=== PATIENT | female | born 1990 | race African-American/Black ===

== ENCOUNTER 2018-09-10 00:24 | Observation (INO) ==
[2018-09-10 02:14] LABS: Baso % (Auto) 0.2 % (0.0-2.0); Eos % (Auto) 0.1 % (0.0-4.0); Hematocrit 25.3 % (35.0-46.0); Hemoglobin 8.5 gm/dL (11.6-15.3); Lymph # (Auto) 1.6 th/mm3 (1.0-4.8); Lymph % (Auto) 9.3 % (9.0-44.0); Mean Corpuscular HGB Conc 33.7 % (32.0-36.0); Mean Corpuscular Hemoglobin 30.5 pg (27.0-34.0); Mean Corpuscular Volume 90.5 fL (80.0-100.0); Mean Platelet Volume 6.7 fL (7.0-11.0); Mono # (Auto) 1.8 th/mm3 (0.0-0.9); Mono % (Auto) 10.5 % (0.0-8.0); Neut # (Auto) 13.4 th/mm3 (1.8-7.7); Neut % (Auto) 79.9 % (16.0-70.0); Platelet Count 509 th/mm3 (150-450); Red Blood Count 2.79 mil/mm3 (4.00-5.30); Red Cell Distribution Width 12.8 % (11.6-17.2); White Blood Count 16.8 th/mm3 (4.0-11.0)
--- NOTE | 2018-09-10 02:20 | ED ---
History of Present Illness Primary Care Physician: No Primary Care Physician History of Present Illness: 28-year-old 5 para 2 TAB 1, SAB 1 at 26+ weeks gestation who presents for evaluation of abdominal pain. Patient states that the pain is in the right upper quadrant and is fairly constant. She describes it as crampy and 10 out of 10 intensity. She has had the pain for the last 2 months and has previously rated it 10/10 as far back as Jul 12. She denies obvious association with eating. She denies fever or chills. No anorexia, diarrhea or constipation. She denies any acholic stools or blood in her stool. No dysuria hematuria or frequency. Obstetrical history: 2 prior C-sections, elective , spontaneous . Her current is under the care of Dr. Copeland. It has been complicated by this pain now since June. She had a negative right upper quadrant ultrasound July 12 for similar pain. Review of Systems All other systems reviewed negative except as stated [facility] - Medical History Medical History: Medical History (Last Updated 09/10/18 @ 02:15 by Avery Main MD) History of Helicobacter pylori infection - Surgical History Surgical History: Surgical History (Last Updated 09/10/18 @ 02:15 by Avery Main MD) History of History of dilation and curettage - Travel History Recent Travel in the [place] Within the Last 8 Weeks: No Recent Travel Out of the Country Within the Last 8 Weeks: No Medications and Allergies Allergies Allergy/AdvReac Type Severity Reaction Status Date / Time No Known Allergies Allergy none Uncoded 09/10/18 00:53 Home Medications Medication Instructions Recorded Confirmed Type PNV cmb#95-ferrous fumarate-FA 1 tab PO DAILY 07/12/18 09/10/18 History [] acetaminophen [Tylenol Extra 1,000 mg PO Q6H PRN 09/10/18 09/10/18 History Strength] ferrous sulfate 1 tab PO DAILY 09/10/18 09/10/18 History Exam Vital signs: Vital Signs 09/10/18 00:41 09/10/18 00:49 Temperature 98.3 F Pulse Rate 123 H Respiratory Rate 18 Blood Pressure 97/62 L Intake & Output 09/09/18 09/09/18 09/10/18 06:59 18:59 06:59 Weight 59.874 kg Narrative: GENERAL: Well-nourished, well-developed patient. SKIN: Warm and dry. HEAD: Normocephalic and atraumatic. EYES: No scleral icterus. No injection or drainage. ENT: No nasal drainage noted. Mucous membranes pink. Airway patent. NECK: Supple, trachea midline. No JVD. CARDIOVASCULAR: Regular rate and rhythm without murmurs, gallops, or rubs. RESPIRATORY: Breath sounds equal bilaterally. No accessory muscle use. ABDOMEN/GI: Abdomen soft, localized tenderness in the right midclavicular line above the umbilicus, bowel sounds present, no rebound, no guarding , no CVA tenderness Gravid to [-] weeks size Fundal Height: [-] GENITOURINARY: External Genitalia: intact and normal in appearance BUS glands: [-] Cervix: [-] Dilatation: [-] Effacement: [-] Station: [-] Presentation: [-] Membranes: [intact or ruptured] Uterine Contractions: [no-] FHT's: Category: [1-] Baseline: [-] Reactive: [-y] Variability: [-] Decels: [-] EXTREMITIES: No cyanosis or edema. BACK: Nontender without obvious deformity. No CVA tenderness. NEUROLOGICAL: Awake and alert. Motor and sensory grossly within normal limits. Five out of 5 muscle strength in all muscle groups. Normal speech. Results - Labs CBC & Chem 7: 09/10/18 01:52 09/10/18 01:52 Assessment and Plan - Plan Assessment: 26-week intrauterine with right upper quadrant abdominal pain of uncertain origin which has been present over the last 2 months with an increase tonight with elevated white blood cell count. I am concerned of the possibility of an evolving acute abdominal process. Plan: Admit for observation and serial examination. Repeat ultrasound, consider possibly MRI. General surgical consult. Repeat CBC at [address] Bryan notified. Discharge Plan - Discharge Disposition Patient Disposition: 30 Still Patient - Discharge Condition Condition: Stable - Physicians Team ED Provider: Avery Main Primary Care Provider: Primary Care StaniMagda - Rxs /Orders / Referrals /Forms Prescriptions: No Action acetaminophen [Tylenol Extra Strength] 500 mg Tablet 1,000 mg PO Q6H PRN (Reason: Pain) ferrous sulfate 325 mg (65 mg iron) Tablet 1 tab PO DAILY PNV cmb#95-ferrous fumarate-FA [] 28 mg iron- 800 mcg Tablet 1 tab PO DAILY - Discharge Instructions Print Language: Faroese
[2018-09-10 02:21] LABS: Bacteria,Urine Occasional /hpf; Bilirubin,Urine Negative (Negative); Clarity,Urine Clear (Clear); Color,Urine Straw (Yellw/Straw); Glucose,Urine (UA) Negative (Negative); Leukocyte Esterase,Urine Negative (Negative); Mucus,Urine Few /lpf (Occasional); Nitrite,Urine Negative (Negative); Specific Gravity,Urine 1.006 (1.002-1.035); Squamous Epithelial Cell,Urine 1 /hpf (0-5)
[2018-09-10 02:33] LABS: Alanine Aminotransferase 10 U/L (10-53); Albumin 2.2 g/dL (3.4-5.0); Amylase 34 U/L (25-115); Anion Gap 12 meq/L (5-15); Aspartate Aminotransferase 7 U/L (15-37); Blood Urea Nitrogen 4 mg/dL (7-18); Calcium 8.5 mg/dL (8.5-10.1); Carbon Dioxide 22.7 meq/L (21.0-32.0); Chloride 104 meq/L (98-107); Glomerular Filtration Rate Greater Than 89 mL/min (>89); Glucose,Random 72 mg/dL (74-106); Lipase 27 U/L (73-393); Potassium 3.4 meq/L (3.5-5.1); Sodium 139 meq/L (136-145)
[2018-09-10 02:35] LABS: Alkaline Phosphatase 120 U/L (45-117); Total Protein 6.7 g/dL (6.4-8.2)
[2018-09-10] MEDS ORDERED: Sod Chloride 0.9% Inj 1,000 ML IV.CONT SCH ×2 (03:00→19:00)
--- NOTE | 2018-09-10 03:42 | P.HPOB ---
*LIVE* [facility] OB - ED Note Patient Name: Bebe Bruno Date of : 86 Patient Status: Observation Attending Provider: Estuardo Bryan Date: 09/10/18 02:09 Initialization Date: 09/10/18 02:09 History of Present Illness Primary Care Physician: No Primary Care Physician History of Present Illness: 28-year-old 5 para 2 TAB 1, SAB 1 at 26+ weeks gestation who presents for evaluation of abdominal pain. Patient states that the pain is in the right upper quadrant and is fairly constant. She describes it as crampy and 10 out of 10 intensity. She has had the pain for the last 2 months and has previously rated it 10/10 as far back as Jul 12. She denies obvious association with eating. She denies fever or chills. No anorexia, diarrhea or constipation. She denies any acholic stools or blood in her stool. No dysuria hematuria or frequency. Obstetrical history: 2 prior C-sections, elective , spontaneous . Her current is under the care of Dr. Copeland. It has been complicated by this pain now since June. She had a negative right upper quadrant ultrasound July 12 for similar pain. Review of Systems All other systems reviewed negative except as stated in HPI [facility] - Medical History Medical History: Medical History (Last Updated 09/10/18 @ 02:15 by Avery Main MD) History of Helicobacter pylori infection - Surgical History Surgical History: Surgical History (Last Updated 09/10/18 @ 02:15 by Avery Main MD) History of History of dilation and curettage - Travel History Recent Travel in the [facility] Within the Last 8 Weeks: No Recent Travel Out of the Country Within the Last 8 Weeks: No Medications and Allergies Allergies Allergy/AdvReac Type Severity Reaction Status Date / Time No Known Allergies Allergy none Uncoded 09/10/18 00:53 Home Medications Medication Instructions Recorded Confirmed Type PNV cmb#95-ferrous fumarate-FA 1 tab PO DAILY 07/12/18 09/10/18 History [] acetaminophen [Tylenol Extra 1,000 mg PO Q6H PRN 09/10/18 09/10/18 History Strength] ferrous sulfate 1 tab PO DAILY 09/10/18 09/10/18 History Exam Vital signs: Vital Signs 09/10/18 00:41 09/10/18 00:49 Temperature 98.3 F Pulse Rate 123 H Respiratory Rate 18 Blood Pressure 97/62 L Intake & Output 09/09/18 09/09/18 09/10/18 06:59 18:59 06:59 Weight 59.874 kg Narrative: GENERAL: Well-nourished, well-developed patient. SKIN: Warm and dry. HEAD: Normocephalic and atraumatic. EYES: No scleral icterus. No injection or drainage. ENT: No nasal drainage noted. Mucous membranes pink. Airway patent. NECK: Supple, trachea midline. No JVD. CARDIOVASCULAR: Regular rate and rhythm without murmurs, gallops, or rubs. RESPIRATORY: Breath sounds equal bilaterally. No accessory muscle use. ABDOMEN/GI: Abdomen soft, localized tenderness in the right midclavicular line above the umbilicus, bowel sounds present, no rebound, no guarding , no CVA tenderness Gravid to [-] weeks size Fundal Height: [-] GENITOURINARY: External Genitalia: intact and normal in appearance BUS glands: [-] Cervix: [-] Dilatation: [-] Effacement: [-] Station: [-] Presentation: [-] Membranes: [intact or ruptured] Uterine Contractions: [no-] FHT's: Category: [1-] Baseline: [-] Reactive: [-y] Variability: [-] Decels: [-] EXTREMITIES: No cyanosis or edema. BACK: Nontender without obvious deformity. No CVA tenderness. NEUROLOGICAL: Awake and alert. Motor and sensory grossly within normal limits. Five out of 5 muscle strength in all muscle groups. Normal speech. Results - Labs CBC & Chem 7: 09/10/18 01:52 09/10/18 01:52 Assessment and Plan - Plan Assessment: 26-week intrauterine with right upper quadrant abdominal pain of uncertain origin which has been present over the last 2 months with an increase tonight with elevated white blood cell count. I am concerned of the possibility of an evolving acute abdominal process. Plan: Admit for observation and serial examination. Repeat ultrasound, consider possibly MRI. General surgical consult. Repeat CBC at [address] Tyser notified. Discharge Plan - Discharge Disposition Patient Disposition: 30 Still Patient - Discharge Condition Condition: Stable - Physicians Team ED Provider: Avery Main Primary Care Provider: Primary Care Magda Nazario - Rxs /Orders / Referrals /Forms Prescriptions: No Action acetaminophen [Tylenol Extra Strength] 500 mg Tablet 1,000 mg PO Q6H PRN (Reason: Pain) ferrous sulfate 325 mg (65 mg iron) Tablet 1 tab PO DAILY PNV cmb#95-ferrous fumarate-FA [] 28 mg iron- 800 mcg Tablet 1 tab PO DAILY - Discharge Instructions Print Language: Iraqi
[2018-09-10 04:05] LABS: Amphetamine Screen,Urine Neg (Neg); Barbiturate Screen,Urine Neg (Neg); Cannabinoid Screen,Urine Neg (Neg); Cocaine Screen,Urine Neg (Neg)
[2018-09-10 04:06] LABS: Opiate Screen,Urine Neg (Neg)
--- NOTE | 2018-09-10 05:05 | US ---
EXAM DATE: 09/10/2018 5:01 AM EST AGE/SEX: 28 years / Female INDICATIONS: RUQ pain. CLINICAL DATA: This is the patient's subsequent encounter. Patient reports that signs and symptoms h ave been present for 2 months and indicates a pain score of 10/10. MEDICAL/SURGICAL HISTORY: . . Helicobacter pylori infection. section. Dilat ion and curettage. COMPARISON: No prior exams available for comparison. MEASUREMENTS: Liver:__ 17.1 cm. Common Bile Duct:__ 4mm. FINDINGS: Liver: Increased echotexture without focal lesion or ductal dilation. Portal Vein: Hepatopedal flow seen in portal vein. Common Duct: No intraluminal mass or stone visualized. Gallbladder: Demonstrates no wall thickening or pericholecystic fluid. No stones visualized. Pancreas: Not well visualized. Right Kidney: Increased echotexture. No mass or hydronephrosis. CONCLUSION: Right upper quadrant abdominal ultrasound within normal limits. Electronically signed by: Mauricio Trammell MD 09/10/2018 5:04 AM EST
[2018-09-10 08:13] LABS: Baso % (Auto) 0.1 % (0.0-2.0); Eos % (Auto) 0.1 % (0.0-4.0); Hematocrit 24.1 % (35.0-46.0); Hemoglobin 8.2 gm/dL (11.6-15.3); Lymph # (Auto) 1.1 th/mm3 (1.0-4.8); Lymph % (Auto) 7.3 % (9.0-44.0); Mean Corpuscular HGB Conc 34.1 % (32.0-36.0); Mean Corpuscular Hemoglobin 30.7 pg (27.0-34.0); Mean Corpuscular Volume 89.9 fL (80.0-100.0); Mean Platelet Volume 6.5 fL (7.0-11.0); Mono # (Auto) 1.6 th/mm3 (0.0-0.9); Mono % (Auto) 10.7 % (0.0-8.0); Neut # (Auto) 12.4 th/mm3 (1.8-7.7); Neut % (Auto) 81.8 % (16.0-70.0); Platelet Count 457 th/mm3 (150-450); Red Blood Count 2.68 mil/mm3 (4.00-5.30); Red Cell Distribution Width 12.7 % (11.6-17.2); White Blood Count 15.2 th/mm3 (4.0-11.0)
--- NOTE | 2018-09-10 08:49 | P.OBGPN ---
OB progress note The patient reports no change in her pain since admission. She denies new symptoms. HR 120's, T 98.6, BP 97/59 Abdomen: She continues to have focal tenderness and guarding on the right upper quadrant. There is no tenderness in other abdominal locations. Bowel sounds are present. Right upper quadrant ultrasound was within normal limits WBC 16.8 to 15.2 now, HGB 8.5 to 8.2 now Assessment: Right upper quadrant pain of uncertain origin in female with a 26- week intrauterine Plan: I discussed this patient with Dr. Mason from surgery who will be performing her consultation who agreed with the plan to proceed with MRI. I discussed this patient with Dr. Hicks who is her attending physician.
[2018-09-10] MEDS ORDERED: HYDROmorphone PF Inj 1 MG/ML Ampul IV.PUSH ONE (09:00)
--- NOTE | 2018-09-10 09:52 | P.OBANTE ---
Subjective Objective Vital Signs and I&O: Vital Signs 09/10/18 00:41 09/10/18 00:49 09/10/18 03:26 Temperature 98.3 F 98.0 F Pulse Rate 123 H 113 H Respiratory Rate 18 18 Blood Pressure 97/62 L 93/59 L 09/10/18 07:53 Temperature 97.9 F Pulse Rate 121 H Respiratory Rate 20 Blood Pressure 97/59 L Intake & Output 09/09/18 09/10/18 09/10/18 18:59 06:59 18:59 Weight 60 kg Other: Weight On Admission 60 kg Lab and Micro Results: Laboratory Results - last 24 hr 09/10/18 09/10/18 09/10/18 00:50 00:50 01:52 WBC 16.8 H RBC 2.79 L Hgb 8.5 L Hct 25.3 L MCV 90.5 MCH 30.5 MCHC 33.7 RDW 12.8 Plt Count 509 H MPV 6.7 L Neut % (Auto) 79.9 H Lymph % (Auto) 9.3 Glades % (Auto) 10.5 H Eos % (Auto) 0.1 Baso % (Auto) 0.2 Neut # (Auto) 13.4 H Lymph # (Auto) 1.6 Glades # (Auto) 1.8 H Eos # (Auto) 0.0 Baso # (Auto) 0.0 WBC Differential . Differential Comment Auto diff final Sodium Potassium Chloride Carbon Dioxide Anion Gap BUN Creatinine Estimated GFR Random Glucose Calcium Total Bilirubin AST ALT Alkaline Phosphatase Total Protein Albumin Amylase Lipase Urine Color Straw Urine Clarity Clear Urine pH 5.0 Ur Specific Baxley 1.006 Urine Protein Negative Urine Glucose (UA) Negative Urine Ketones 80 or greater H Urine Occult Blood Negative Urine Nitrate Negative Urine Bilirubin Negative Urine Urobilinogen Less than 2 Ur Leukocyte Esterase Negative Urine RBC Less than 1 Urine WBC 4 Ur Squamous Epith Cells 1 Urine Bacteria Occasional H Urine Mucus Few H Micro UA Comment Culture not ind Ur Microscopic Review Not Reportable Urine Culture Comments Culture not ind Urine Opiates Screen Neg Ur Barbiturates Screen Neg Ur Amphetamines Screen Neg U Benzodiazepines Scrn Neg Urine Cocaine Screen Neg U Cannabinoids Screen Neg 09/10/18 09/10/18 01:52 07:50 WBC 15.2 H RBC 2.68 L Hgb 8.2 L Hct 24.1 L MCV 89.9 MCH 30.7 MCHC 34.1 RDW 12.7 Plt Count 457 H MPV 6.5 L Neut % (Auto) 81.8 H Lymph % (Auto) 7.3 L Glades % (Auto) 10.7 H Eos % (Auto) 0.1 Baso % (Auto) 0.1 Neut # (Auto) 12.4 H Lymph # (Auto) 1.1 Glades # (Auto) 1.6 H Eos # (Auto) 0.0 Baso # (Auto) 0.0 WBC Differential . Differential Comment Auto diff final Sodium 139 Potassium 3.4 L Chloride 104 Carbon Dioxide 22.7 Anion Gap 12 BUN 4 L Creatinine 0.42 L Estimated GFR Greater than 89 Random Glucose 72 L Calcium 8.5 Total Bilirubin 0.3 AST 7 L ALT 10 Alkaline Phosphatase 120 H Total Protein 6.7 Albumin 2.2 L Amylase 34 Lipase 27 L Urine Color Urine Clarity Urine pH Ur Specific Baxley Urine Protein Urine Glucose (UA) Urine Ketones Urine Occult Blood Urine Nitrate Urine Bilirubin Urine Urobilinogen Ur Leukocyte Esterase Urine RBC Urine WBC Ur Squamous Epith Cells Urine Bacteria Urine Mucus Micro UA Comment Ur Microscopic Review Urine Culture Comments Urine Opiates Screen Ur Barbiturates Screen Ur Amphetamines Screen U Benzodiazepines Scrn Urine Cocaine Screen U Cannabinoids Screen Physical Exam: GENERAL: Well-nourished, well-developed patient. CARDIOVASCULAR: Regular rate and rhythm without murmurs, gallops, or rubs. RESPIRATORY: Breath sounds equal bilaterally. No accessory muscle use. ABDOMEN/GI: Abdomen soft, non-tender. Fundus: [-] GENITOURINARY: External Genitalia: intact and normal in appearance Cervix: [-] Dilatation: [-] Effacement: [-] Station: [-] Presentation: [-] Membranes: [-] Uterine Contractions: [-] FHT's: Category: [-] Baseline: [-] Reactive: [-] Variability: [-] Decels: [-] EXTREMITIES: No cyanosis or edema, non-tender, without signs of DVT. Assessment and Plan - Diagnosis (1) Abdominal pain Code(s): R10.9 - Unspecified abdominal pain Status: Acute Plan: surgical consult/ MRI ordered pain medication ordered (2) 26 weeks gestation of Code(s): Z3A.26 - 26 weeks gestation of Status: Acute Plan: tracing reassuring, - Plan RUQ pain constant, pain medication ordered, other quadrants of abd soft and nontender MRI ordered to assist with etiology surgical consult to be done white count 15.2, hgb 8.2 (1) Abdominal pain Qualifiers: Abdominal location: right upper quadrant Qualified Code(s): R10.11 - Right upper quadrant pain
--- NOTE | 2018-09-10 10:51 | MR ---
EXAM DATE: 09/10/2018 10:26 AM EST AGE/SEX: 28 years / Female INDICATIONS: . RUQ pain. Patient 26 weeks . CLINICAL DATA: This is the patient's initial encounter. Patient reports that signs and symptoms have been present for 2 weeks and indicates a pain score of 8/10. MEDICAL/SURGICAL HISTORY: . section. COMPARISON: [facility], CT ABDOMEN AND PELVIS W AND W/O CONTRAST, 08/16/2017. . TECHNIQUE: Multiplanar, multisequence images of the abdomen was performed without contrast. FINDINGS: The patient is known to be 26 weeks . The was not assessed by the MRI. The examination demonstrates an area of extensive, abnormal thickening and inflammation involving the terminal ileum up to the base of the cecum. Of concern, there is abnormal fluid and soft tissue exte nding laterally from the region of the base of the cecum into the subcutaneous tissues of the right f lank. This is concerning for abscess with potential fistula formation. I do not definitively identify the appendix this is likely secondary to the extensive inflammatory changes in this area. The overal l involvement of the distal ileum would suggest the most likely etiology of this is from the patient' s inflammatory bowel disease. There is stool diffusely throughout the colon suggesting possible constipation. The appearance of the liver, spleen, pancreas, adrenal glands and kidneys is within normal limits. Th ere is no retroperitoneal lymphadenopathy. No free intra-abdominal fluid is identified. CONCLUSION: 1. The examination demonstrates extensive inflammatory change and thickening involving the terminal ileum and base of the cecum with abnormal inflammatory changes and fluid extending out into the subcu taneous soft tissues of the right flank adjacent to this area. This is concerning for inflammatory larry wel disease with abscess and pending fistula formation. 2. The solid organs of the abdomen are intact. 3. The patient is known to be 26 weeks . The was not assessed in detail. Electronically signed by: Sonny Live MD 09/10/2018 10:50 AM EST
[2018-09-10] MEDS: HYDROmorphone PF Inj 1 MG/ML Ampul IV.PUSH PRN ×4 (11:20→20:20)
[2018-09-10] MEDS ORDERED: Acetaminophen 500 MG Tablet PO PRN (16:26)
[2018-09-10] MEDS ORDERED: Ampicillin/Sulbactam Inj 3 GM in Sodium Chloride 0.9% Inj 100 ML IV.SIG ONE (17:00)
--- NOTE | 2018-09-10 17:10 | P.PNADD ---
Addendum to Inpatient Note Reason for Addendum: Additional Documentation Additional information: ELLEN called at 5:00PM Resident team at bedside at 5:00PM S: 28-year-old female A1 at 26/4 weeks gestation who originally presented to the OB ED for abdominal pain. MRI from this morning showed "extensive inflammatory change and thickening involving the terminal ileum and base of the cecum with abnormal inflammatory changes and fluid extending out into the subcutaneous soft tissues of the right flank adjacent to this area, concerning for inflammatory bowel disease with abscess and pending fistula formation". Gallbladder US was negative. Patient had a fever of up to 101.1F, with tachycardia up to 138 bpm and blood pressure of 95/48. Patient pending possible transfer [facility] for further care. Patient states that her pain is well controlled at this point in time. Patient denies headache, chest pain, shortness of breath, leg pain or swelling. O: Vital signs: Tmax 101.1, BP 95/48, HR 133, RR 20 GENERAL: Well-developed, well-nourished, in no resp distress HEENT: NCAT, EOMI, no scleral icterus, no conjunctival injection. MMM. Airway patent. NECK: Supple, no meningeal signs. No JVD. CV: RRR, S1 S2. No murmurs. CHEST/PULM: CTAB, no crackles, no wheezes ABD/GI: +BS in all 4 quadrants. Tender to light and moderate palpation of right flank. No no rebound or guarding. Gravid to 26 weeks. : Indwelling lazcano in place EXT: 2+ DP pulses. No significant edema. NEURO: Awake, alert. Normal muscle tone. Grossly nonfocal. SKIN: No rashes, no jaundice. A/P: -CBC, CMP, lactic acid, blood cultures x2 ordered -1 L IV fluid bolus -Antibiotics: Unasyn and Flagyl ordered per OB provider -Continue Ofirmev IV -Continue Dilaudid 1 mg IV every 2 hours for pain -Continuous electronic monitoring ordered. -Stat consult to airline operations agent ordered. Spoke to airline operations agent, Dr. Cuevas, in preparation for transfer to ICU. sdw Dr. Gaona
[2018-09-10 17:40] LABS: Baso % (Auto) 0.2 % (0.0-2.0); Hematocrit 25.4 % (35.0-46.0); Hemoglobin 8.5 gm/dL (11.6-15.3); Lymph # (Auto) 1.5 th/mm3 (1.0-4.8); Lymph % (Auto) 9.4 % (9.0-44.0); Mean Corpuscular HGB Conc 33.5 % (32.0-36.0); Mean Corpuscular Hemoglobin 31.4 pg (27.0-34.0); Mean Corpuscular Volume 93.7 fL (80.0-100.0); Mean Platelet Volume 6.5 fL (7.0-11.0); Mono # (Auto) 1.8 th/mm3 (0.0-0.9); Mono % (Auto) 11.6 % (0.0-8.0); Neut # (Auto) 12.5 th/mm3 (1.8-7.7); Neut % (Auto) 78.8 % (16.0-70.0); Platelet Count 462 th/mm3 (150-450); Red Blood Count 2.71 mil/mm3 (4.00-5.30); Red Cell Distribution Width 13.4 % (11.6-17.2); White Blood Count 15.8 th/mm3 (4.0-11.0)
[2018-09-10 18:00] LABS: Alanine Aminotransferase 10 U/L (10-53); Albumin 2.1 g/dL (3.4-5.0); Anion Gap 13 meq/L (5-15); Aspartate Aminotransferase 9 U/L (15-37); Blood Urea Nitrogen 4 mg/dL (7-18); Calcium 8.2 mg/dL (8.5-10.1); Carbon Dioxide 17.6 meq/L (21.0-32.0); Chloride 108 meq/L (98-107); Glomerular Filtration Rate Greater Than 89 mL/min (>89); Glucose,Random 63 mg/dL (74-106); Potassium 3.4 meq/L (3.5-5.1); Sodium 139 meq/L (136-145)
[2018-09-10] MEDS ORDERED: Piperacil/Tazo 3.375 GM Premix 50 ML IV.SIG SCH (18:00)
[2018-09-10 18:02] LABS: Alkaline Phosphatase 110 U/L (45-117); Total Protein 6.7 g/dL (6.4-8.2)
[2018-09-10] MEDS: Sod Chloride 0.9% Inj 1,000 ML IV.SIG SCH ×2 (19:29→20:20)
--- NOTE | 2018-09-10 20:20 | P.CONCC ---
History of Present Illness Primary Care Provider: No Primary Care Physician History of Present Illness: 28-year-old 5 para 2 TAB 1, SAB 1 at 26+ weeks gestation has been admitted for an evaluation of abdominal pain. Patient states that the pain is in the right upper quadrant and is fairly constant. She describes it as crampy and 10 out of 10 intensity. She has had the pain for the last 2 months and has previously rated it 10/10 as far back as Jul 12. She denies obvious association with eating. She denies fever or chills. No anorexia, diarrhea or constipation. She denies any acholic stools or blood in her stool. No dysuria hematuria or frequency. The MRI of the abdomen obtained demonstrates extensive inflammatory change and thickening involving the terminal ileum and base of the cecum with abnormal inflammatory changes and fluid extending out into the subcutaneous soft tissues of the right flank adjacent to this area. This is concerning for inflammatory bowel disease with abscess and pending fistula formation. The patient was initially admitted to [facility] unit for an observation , however today early in the afternoon she became borderline hypotensive with tachycardia and fever 101.1 and the rapid response team was activated. The patient has been transferred to ICU for suspicious sepsis where she was properly volume resuscitated, started on IV antibiotics, and has been [facility] [place] for higher level of care. Review of Systems All other systems reviewed negative except as stated in HPI PMFSH - History History Provided By: Patient - Medical History Medical History: Medical History (Last Updated 09/10/18 @ 02:15 by Avery Main MD) History of Helicobacter pylori infection - Surgical History Surgical History: Surgical History (Last Updated 09/10/18 @ 02:15 by Avery Main MD) History of History of dilation and curettage - Tobacco History Second Hand Smoke Exposure: No Tobacco Use In Past 30 Days: No Smoking Status: Former smoker Tobacco Type: Cigarettes - Alcohol History How Often Do You Have a Drink Containing Alcohol: Never - Substance Use History Substance History: No History of Abuse - Travel History Recent Travel in the [place] Within the Last 8 Weeks: No Recent Travel Out of the Country Within the Last 8 Weeks: No - Immunization History Tetanus Immunization: Unsure Hx Influenza Vaccine This Season: Yes Medications and Allergies Active Medications: Active Medications Hydromorphone HCl (Dilaudid Pf Inj) 1 mg IV.PUSH Q2H PRN PRN Reason: PAIN SCALE 3-10 Last Admin: 09/10/18 16:33 Dose: 1 mg Metronidazole/Sodium Chloride (Flagyl 500 Mg Inj) 100 mls @ 100 mls/hr IV.SIG Q8H KARIS Piperacillin/Tazobactam/Dextrose (Zosyn 3.375 Gm Premix) 50 mls @ 100 mls/hr IV.SIG Q6H KARIS Last Admin: 09/10/18 19:33 Dose: 100 mls/hr Sodium Chloride (Ns Inj) 1,000 mls @ 150 mls/hr IV.CONT .Q6H40M KARIS Ondansetron HCl (Zofran Inj) 4 mg IV.PUSH Q4H PRN PRN Reason: NAUSEA Sodium Chloride (Ns Flush) 2 ml IV.FLUSH BID KARIS Last Admin: 09/10/18 10:50 Dose: Not Given Sodium Chloride (Ns Flush) 2 ml IV.FLUSH PRN PRN PRN Reason: FLUSH AFTER USING IV ACCESS Allergies Allergy/AdvReac Type Severity Reaction Status Date / Time No Known Allergies Allergy Verified 09/10/18 04:52 Home Medications Medication Instructions Recorded Confirmed Type PNV cmb#95-ferrous fumarate-FA 1 tab PO DAILY 07/12/18 09/10/18 History [] acetaminophen [Tylenol Extra 1,000 mg PO Q6H PRN 09/10/18 09/10/18 History Strength] ferrous sulfate 1 tab PO DAILY 09/10/18 09/10/18 History Physical Exam Vital signs: Vital Signs 09/10/18 00:41 09/10/18 00:49 09/10/18 03:26 Temperature 98.3 F 98.0 F Pulse Rate 123 H 113 H Respiratory Rate 18 18 Blood Pressure 97/62 L 93/59 L Pulse Oximetry 09/10/18 07:53 09/10/18 10:05 09/10/18 12:55 Temperature 97.9 F Pulse Rate 121 H 123 H Respiratory Rate 20 8 L 18 Blood Pressure 97/59 L 95/52 L Pulse Oximetry 09/10/18 12:56 09/10/18 16:20 09/10/18 16:22 Temperature 99.0 F 100.1 F H 101.1 F H Pulse Rate 133 H Respiratory Rate 20 Blood Pressure 95/48 L Pulse Oximetry 09/10/18 16:45 09/10/18 16:50 09/10/18 16:55 Temperature Pulse Rate 138 H 133 H 127 H Respiratory Rate Blood Pressure Pulse Oximetry 09/10/18 17:54 09/10/18 18:00 09/10/18 19:00 Temperature 98.9 F 98.2 F Pulse Rate 134 H 122 H Respiratory Rate 16 16 21 Blood Pressure 94/51 L Pulse Oximetry 98 09/10/18 20:00 Temperature Pulse Rate 119 H Respiratory Rate 26 H Blood Pressure 97/56 L Pulse Oximetry 99 Intake & Output 09/10/18 09/10/18 09/11/18 06:59 18:59 06:59 Intake Total 1300 / 1300 Output Total 225 / 225 Balance -225 / -225 1300 / 1300 Weight 60 kg 69.7 kg Intake: IV 1300 / 1300 NS Inj 1,000 ML @ 125 mls/hr IV 1000 / 1000 .CONT .Q8H KARIS Rx#:[id number] Ofirmev Inj 1,000 mg In 100 ml 100 / 100 @ 400 mls/hr IV.SIG ONCE ONE Rx #:[id number] Unasyn Inj 3 GM In NS Inj 100 100 / 100 ML @ 200 mls/hr IV.SIG ONCE ONE Rx#:[id number] Flagyl 500 MG Inj 100 ML @ 100 100 / 100 mls/hr IV.SIG ONCE ONE Rx#: [id number] Output: Urine Amount (Catheter) 225 / 225 Indwelling Urethral Catheter 225 / 225 Other: Weight On Admission 60 kg - Constitutional moderate distress - Routine HEENT Exam Head: Present: normocephalic, atraumatic Eye: Present: PERRL ENT: Present: mucous membranes moist - Routine Neck Exam Present: supple, full ROM. Absent: JVD, carotid bruit - Routine Respiratory Exam Absent: accessory muscle use, rhonchi, stridor, wheezes - Routine Cardiovascular Exam Present: RRR, S1, S2, tachycardia - Routine Abdominal Exam Present: soft, normoactive bowel sounds Comments: 26 weeks - Routine Extremities Exam Absent: cyanosis, clubbing, edema - Routine Skin Exam Present: intact. Absent: cyanosis, erythema - Routine Neurological Exam Present: alert, oriented X3, moving all extremities - Detailed Neurological Exam: Coma Scale Eye Opening: Spontaneous Verbal Response: Oriented Motor Response: Obey commands [place] Coma Scale Total: 15 - Urinary Catheter Management Indwelling Urethral Catheter Cath placed during this visit: no Septic Shock Reassessment Septic shock perfusion: reassessment completed Assessment and Plan - Assessment and Plan Plan: New onset of Crohn's disease with suspicious abscess formation and fistula -[facility] -Empiric broad-spectrum antibiotic -IV fluid SIRS/sepsis -Due to above -Empiric Flagyl and Zosyn -Aggressive IV fluid resuscitation -Per [facility] DVT GI prophylaxis -Teds SCDs -Pharmacological DVT prophylaxis per surgeon and [facility] -Pepcid 35 minutes of critical care
--- NOTE | 2018-09-11 18:37 | MB ---
cc: Jaya Goldstein MD DATE: 09/11/2018 HISTORY OF PRESENT ILLNESS: This is a 28-year-old female who is at 26 weeks' gestation, admitted with a complaint of abdominal pain. The patient has a history of Crohn disease. She has not had continuous treatment for this. She began experiencing abdominal pain approximately 2 months ago, persistence in her right side. As it was severe in nature, she presented to [place]. An ultrasound was performed of her upper abdomen, which was negative. The patient had an MRI of her abdomen which revealed thickening of the distal small bowel, as well as the cecum, concern for inflammatory bowel disease. The patient states that she was feeling well and as a result did not take her chronic medication for her Crohn's. PAST MEDICAL HISTORY: Significant for above, as well as treatment for H. pylori. PAST SURGICAL HISTORY: Significant for . MEDICATIONS: Can be obtained from the medical record. SOCIAL HISTORY: She does not smoke. FAMILY HISTORY: Noncontributory. PHYSICAL EXAMINATION: GENERAL: She is lying in bed, in distress secondary to pain. HEENT: Her pupils are equal and reactive. NECK: Her trachea is midline. RESPIRATIONS: Clear. CARDIOVASCULAR: Regular. GASTROINTESTINAL: Soft. Gravid uterus. Tenderness in the right upper and right lower quadrant. MUSCULOSKELETAL: No deformities. NEUROLOGIC: Nonfocal. LABORATORY DATA: The patient's white blood cell count was 15.6. MRI reviewed. ASSESSMENT AND PLAN: This is a patient who was at 26 weeks' gestation with a flare of Crohn disease. At present, recommended the patient have a GI evaluation for management of acute flare. Continue monitoring. Will start IV antibiotics. We will follow with you. Jaya Goldstein MD JLS/ll , 04:53 PM , 05:02 PM
== END 2018-09-10 20:45 | disposition short-term general hospital (02) ==
LOC: H2E 00:24 → HOBED 00:24 → H2E 03:15 → HIMC 17:30
PROVIDERS: ADMIT Obstetrics & Gynecology; ATTEND Obstetrics & Gynecology

== ENCOUNTER 2018-12-04 18:29 | Inpatient (IN) ==
[2018-12-04] MEDS ORDERED: ceFAZolin 2 GM Premix Inj 2 GM/50 ML PIGGYBACK IV.SIG PRN (19:06)
[2018-12-04] MEDS ORDERED: Citric Acid/Sodium Citrate Liq 30 ML UDC PO SCH (19:15)
--- NOTE | 2018-12-04 19:24 | P.HPOB ---
[id number] Date of : [birth year] Patient Status: Inpatient Attending Provider: Fawad Copeland Date: 12/04/18 19:14 Initialization Date: 12/04/18 19:14 History of Present Illness Primary Care Physician: No Primary Care Physician Chief Complaint: I broke my water History of Present Illness: 28-year-old at 38 weeks and 5 days presents complaining of spontaneous rupture of membranes clear fluid today. GBS status negative. care with Dr. Copeland. This was complicated by an admission to [place] secondary to an intestinal abscess managed with IV antibiotics in August 2018 required admission times 1 week. Patient reports good movement denies vaginal bleeding reports some cramps but no moy uterine contractions. Last full meal was 12 noon. She has had a couple of sips of water otherwise. Patient also desires permanent sterilization. Past OB history delivery x2 the first was for nonreassuring heart rate, the second was elective repeat Past [employer] HAND history denies STDs Past medical history Crohn's Past surgical history delivery x2, endoscopy and colonoscopy Allergies denies Weeks Gestation:: 38 Para: 2 : 5 - Inpatient Certification I certify that the inpatient services were ordered in accordance with Medicare regulations governing the order. This includes certification that hospital inpatient services are reasonable and necessary and in the case of services not specified as inpatient-only under 42 CFR 419.22(n), that they are appropriately provided as inpatient services in accordance to with the 2-midnight benchmark under 43 CFR 412.3(e) Estimated Total Length of Stay (Days): 4 Plans for Post Hospital Care: Home Review of Systems All other systems reviewed negative except as stated in HPI PMFSH - History History Provided By: Patient - Medical History Medical History: Medical History (Last Updated 09/10/18 @ 02:15 by Avery Main MD) History of Helicobacter pylori infection - Surgical History Surgical History: Surgical History (Last Updated 09/10/18 @ 02:15 by Avery Main MD) History of History of dilation and curettage - Tobacco History Second Hand Smoke Exposure: No Smoking Status: Former smoker Tobacco Type: Cigarettes - Alcohol History How Often Do You Have a Drink Containing Alcohol: Never - Substance Use History Substance History: No History of Abuse - Travel History Recent Travel in the [place] Within the Last 8 Weeks: No Recent Travel Out of the Country Within the Last 8 Weeks: No Medications and Allergies Active Medications: Active Medications Citric Acid/Sodium Citrate (Sodium Citrate/Citric Acid Liq) 30 ml PO [facility] K[facility] Stop: 12/08/18 19:14 Cefazolin Sodium/Dextrose (Ancef 2 Gm Premix Inj) 2 gm in 50 mls @ 100 mls/hr IV.SIG [facility] PRN PRN Reason: ON-CALL Stop: 12/08/18 19:05 Lactated Ringer's (Lr 1000 Ml Inj) 1,000 mls @ 2,000 mls/hr IV.SIG .Q30M ONE Stop: 12/04/18 19:35 Lactated Ringer's (Lr 1000 Ml Inj) 1,000 mls @ 150 mls/hr IV.CONT .Q6H40M KARIS Metronidazole/Sodium Chloride (Flagyl 500 Mg Inj) 100 mls @ 100 mls/hr IV.SIG [facility] PRN PRN Reason: ON-CALL Stop: 12/08/18 19:05 Allergies Allergy/AdvReac Type Severity Reaction Status Date / Time No Known Allergies Allergy Verified 11/29/18 16:43 Home Medications Medication Instructions Recorded Confirmed Type PNV cmb#95-ferrous fumarate-FA 1 tab PO DAILY 07/12/18 11/29/18 History [] RX: ferrous sulfate 1 tab PO DAILY 09/10/18 11/29/18 History acetaminophen [Tylenol Extra 1,000 mg PO Q6H PRN 09/10/18 11/29/18 History Strength] Exam Vital signs: Vital Signs 12/04/18 18:47 Temperature 98.7 F Pulse Rate 111 H Respiratory Rate 20 Blood Pressure 100/70 Intake & Output 12/04/18 12/04/18 12/05/18 06:59 18:59 06:59 Weight 62.596 kg - Constitutional no acute distress - Routine HEENT Exam Head: Present: normocephalic ENT: Present: mucous membranes moist - Routine Neck Exam Present: supple - Routine Chest/Breast/Axilla Exam Chest wall: Absent: tenderness Breast: Absent: tenderness - Routine Respiratory Exam Absent: accessory muscle use - Routine Cardiovascular Exam Present: RRR - Routine Abdominal Exam Present: soft (Gravid, heart rate category 1), tenderness (Minimal tenderness in the right lower quadrant however no fulminant mass palpated) - Routine Exam Comments: PAMG + On exam grossly ruptured Sterile vaginal exam cervix is closed posterior 70% effaced -3 station - Routine Extremities Exam Absent: cyanosis - Routine Skin Exam Present: intact - Routine Neurological Exam Present: alert, oriented X3 Assessment and Plan - Diagnosis (1) Leakage, amniotic fluid Code(s): O42.90 - Premature rupture of membranes, unspecified as to length of time between rupture and onset of labor, unspecified weeks of gestation Status : Acute (2) History of delivery Code(s): Z98.891 - History of uterine scar from previous surgery Status: Acute (3) Encounter for sterilization Code(s): Z30.2 - Encounter for sterilization Status: Acute (4) 38 weeks gestation of Code(s): Z3A.38 - 38 weeks gestation of Status: Acute - Plan Admit On-call to the OR Orders placed Dr. Copeland contacted Patient aware of alternatives, benefits, complications of surgery Discharge Plan - Discharge Disposition Patient Disposition: ED Admit(ED Internal Use Only) - Physicians Team ED Provider: Lauren Jade
[2018-12-04 19:40] LABS: Baso # (Auto) 0.1 th/mm3 (0.0-0.2); Baso % (Auto) 0.7 % (0.0-2.0); Eos % (Auto) 0.1 % (0.0-4.0); Hematocrit 35.7 % (35.0-46.0); Hemoglobin 11.7 gm/dL (11.6-15.3); Lymph # (Auto) 1.9 th/mm3 (1.0-4.8); Lymph % (Auto) 17.1 % (9.0-44.0); Mean Corpuscular HGB Conc 32.7 % (32.0-36.0); Mean Corpuscular Hemoglobin 29.8 pg (27.0-34.0); Mean Platelet Volume 8.1 fL (7.0-11.0); Neut # (Auto) 8.3 th/mm3 (1.8-7.7); Neut % (Auto) 73.1 % (16.0-70.0); Platelet Count 476 th/mm3 (150-450); Red Blood Count 3.92 mil/mm3 (4.00-5.30); Red Cell Distribution Width 14.9 % (11.6-17.2); White Blood Count 11.4 th/mm3 (4.0-11.0)
[2018-12-04] MEDS ORDERED: Phenylephrine/NS 1000 MCG/10ML Syringe IV.PUSH ONE (19:52)
[2018-12-04] MEDS ORDERED: Morphine Sulfate PF Inj 5 MG/10 ML Ampul ONE (19:52)
[2018-12-04 20:03] LABS: Bacteria,Urine Few /hpf; Bilirubin,Urine Negative (Negative); Clarity,Urine Turbid (Clear); Color,Urine Amber (Yellw/Straw); Glucose,Urine (UA) Negative (Negative); Leukocyte Esterase,Urine Moderate (Negative); Mucus,Urine Few /lpf (Occasional); Nitrite,Urine Negative (Negative); Specific Gravity,Urine 1.012 (1.002-1.035); Squamous Epithelial Cell,Urine 56 /hpf (0-5)
[2018-12-04] MEDS ORDERED: fentaNYL Citrate Inj 250 MCG/5 ML Ampul ONE (21:15)
[2018-12-04] MEDS ORDERED: Lidocaine 1% Inj 50 ML Vial ONE (21:58)
[2018-12-04] MEDS ORDERED: Zolpidem Tartrate 5 MG Tablet PO PRN (22:34)
[2018-12-04] MEDS ORDERED: Oxytocin 30 Units/500ml Premix 30 UNITS/500 ML BAG IV.SIG ONE (22:34)
[2018-12-04] MEDS ORDERED: Senna/Docusate Sodium 8.6/50 MG Tablet PO PRN (22:34)
[2018-12-04] MEDS ORDERED: Simethicone 80 MG Chew Tablet PO PRN (22:34)
[2018-12-04] MEDS ORDERED: ceFAZolin Inj 1 GM in Sodium Chlor 0.9% Inj 100 ML IV.SIG SCH (23:00)
--- NOTE | 2018-12-04 23:07 | P.OP ---
- Preoperative Diagnosis (1) History of delivery (2) 26 weeks gestation of (3) Encounter for sterilization - Postoperative Diagnosis (1) Pelvic adhesions Date of procedure: 12/04/18 Procedure: Repeat low transverse section Bilateral tubal ligation Extensive lysis of adhesions Left salpingo-oophorectomy secondary to bleeding Anesthesia: spinal Surgeon: Fawad Copeland MD Estimated blood loss (mL): 1,300 Operation and Findings: Complications massive adhesions of the anterior uterus to the and thick adhesions around the left adnexa. Requiring extensive lysis of adhesions. Counts were correct Findings term male infant with Apgars of 8 and 9. Weight was 3020 g Normal ovaries normal fallopian tubes, around the uterus on the left side there was massive adhesions and anteriorly also on the left there was massive Adhesions. On the right side she did have some thickening where she had that abscess several months ago. There is no discrete mass however. During the entire case it was noted that she was quite oozy. Procedure in detail Patient was taken to the operating room after it was verified that her water had broken she declined and wanted a and tubal ligation. She was readied on the labor floor and in the operating room she was prepped and draped and a [place] catheter inserted after she had her spinal anesthetic. The old incision was then excised and the incision was taken down to the fascia even in the very beginning it was noted that she was having quite a bit of oozing from the incision and the small bleeders were cauterized with the Bovie. Fascia was then identified nicked bilaterally and taken down it was noted that the muscle on the left side the rectus muscle was and retracted back. The fascia was taken off the rectus muscle by blunt sharp dissection bilaterally superiorly and inferiorly. We then entered the abdomen under direct vision there was extensive scarring however I attempted to create a bladder flap however this is very difficult the bladder was quite high on the uterus and scarred down quite a bit. The incision on the uterus was then made in a transverse fashion into the uterine cavity was entered. The uterine incision was then extended with the surgeon's fingers and the bag of water was then broken. Clear fluid was noted. We lifted the vertex up and because there was so much scarring and the whole was quite small we used a vacuum to deliver the vertex. The hypopharynx and nasopharynx were suctioned and the remainder of the was delivered without difficulty and the cord was clamped and cut after 45 seconds. The placenta was then removed manually after we obtained the cord blood. The uterus was then curettaged several times with a wet lap. At this point I could not even move the uterus let alone remove it from the abdomen so I closed the uterine incision with 0 Vicryl in a running locking fashion in one layer to control hemostasis. The bladder was very close to the incision and I wanted to get a better look at that and felt I needed to deliver the uterus from the abdomen at this point the scar tissue was carefully taken down with the Bovie and sharp dissection with good result there was quite a bit of adhesive disease on the left adnexal side as well and I delivered the uterus from the abdomen and began to take some of those adhesions down on the left side as I stated before the bladder was very close to the uterine incision so we filled the bladder with milk and dissected the bladder away put a second layer of suture in the uterine incision and hemostasis was excellent in this incision. The area where I took the adhesions down on the left side of the fundus there was a defect in the uterus and this was repaired with 0 Vicryl in a running fashion as well this hemostatic area was excellent as well next we turned our attention to the fallopian tube and did a small hole was made in the mesosalpinx and the fallopian tubes were tied off and a small segment removed bilaterally. At this point there was some bleeding from the left side so we took down those adhesions to try to get to the bleeding however after about 20 minutes trying to stop this bleeding it was recognized that we are probably going to need to remove that ovary the infundibulopelvic ligament was identified staying far away from the pelvic sidewall as possible we clamped and cut and tied this with 2 Kellys and 0 Vicryl free tie followed by a stick tie. The ovary was then removed using Kellys and 0 Vicryl stick ties. The uterine vessels were very engorged in this area and the area around the utero ovarian leg had very dilated vessels that began to bleed when I gently manipulated them therefore I went ahead and put an [place] stitch in the uterine artery near the cervix and then one above this area to ensure good hemostasis. At this point the gutters and cul-de-sacs were cleaned of blood and debris a little bit of irrigation was used we waited about 5 minutes make sure all areas were hemostatic and then we applied some Jennifer to the areas that I was concerned we delivered the uterus back into the abdomen again and inspected all surgical sites and they were hemostatic put a piece of Interceed over the uterine incision and in a hope to avoid further adhesive disease. At this point we reapproximated the muscle however on the patient's right side that muscle had been pulled out of the area and I could not reapproximate it inferiorly. The fascia was then repaired with 0 Vicryl in a running fashion the spinal was wearing off so we cauterized any small bleeders in the subcu area rinsed it and placed david we put a pressure bandage on because of the oozing and we will go ahead and give her a transfusion of platelets because she did not use the entire procedure and I am concerned about postoperative bleeding. This procedure took over 2 hours to perform and I will run clotting studies now and repeat them in 1 hour as well as get a CBC in the morning. The was in the case the entire time and was watching everything. She went to the recovery room in satisfactory condition
[2018-12-04] MEDS ORDERED: Oxytocin 30 Units/500ml Premix 30 UNITS/500 ML BAG ONE (23:11)
[2018-12-04 23:22] LABS: Hematocrit 25.8 % (35.0-46.0); Hemoglobin 9.2 gm/dL (11.6-15.3); Mean Corpuscular HGB Conc 35.8 % (32.0-36.0); Mean Corpuscular Hemoglobin 32.2 pg (27.0-34.0); Mean Corpuscular Volume 89.9 fL (80.0-100.0); Mean Platelet Volume 8.1 fL (7.0-11.0); Platelet Count 441 th/mm3 (150-450); Red Blood Count 2.87 mil/mm3 (4.00-5.30); Red Cell Distribution Width 14.9 % (11.6-17.2); White Blood Count 14.5 th/mm3 (4.0-11.0)
[2018-12-05 00:01] LABS: D-Dimer 9.77 mg/L FEU (0.00-0.50)
[2018-12-05 00:47] LABS: D-Dimer 8.9 mg/L FEU (0.00-0.50)
[2018-12-05] MEDS ORDERED: Oxytocin 30 Units/500ml Premix 30 UNITS/500 ML BAG IV.SIG PRN (03:34)
[2018-12-05] MEDS: ceFAZolin Inj 1 GM in Sodium Chlor 0.9% Inj 100 ML IV.SIG SCH ×2 (04:23→12:49)
[2018-12-05 08:23] LABS: Baso % (Auto) 0.1 % (0.0-2.0); Hematocrit 23.2 % (35.0-46.0); Hemoglobin 7.7 gm/dL (11.6-15.3); Lymph # (Auto) 1.3 th/mm3 (1.0-4.8); Mean Corpuscular Hemoglobin 30.1 pg (27.0-34.0); Mean Corpuscular Volume 91.1 fL (80.0-100.0); Mean Platelet Volume 7.4 fL (7.0-11.0); Mono # (Auto) 1.1 th/mm3 (0.0-0.9); Mono % (Auto) 9.8 % (0.0-8.0); Neut # (Auto) 9.1 th/mm3 (1.8-7.7); Neut % (Auto) 79.1 % (16.0-70.0); Platelet Count 390 th/mm3 (150-450); Red Blood Count 2.55 mil/mm3 (4.00-5.30); Red Cell Distribution Width 14.7 % (11.6-17.2); White Blood Count 11.5 th/mm3 (4.0-11.0)
[2018-12-05] MEDS: Non-Formulary Drug (Pnv Cmb#95-Ferrous Fumarate-Fa [Prenatal] 1 TAB) PO SCH (09:01)
--- NOTE | 2018-12-05 09:45 | P.PNOB ---
Subjective Post op day: 1 Objective Vital Signs/I&O: Vital Signs 12/04/18 18:47 12/04/18 22:20 12/04/18 22:30 Temperature 98.7 F 96.0 F L Pulse Rate 111 H 99 H 83 Respiratory Rate 20 16 Blood Pressure 100/70 101/55 L 103/63 12/04/18 22:55 12/04/18 23:10 12/04/18 23:22 Temperature 96.3 F L 97.0 F L Pulse Rate 94 H 112 H Respiratory Rate 16 16 16 Blood Pressure 128/58 L 108/56 L 12/04/18 23:25 12/04/18 23:38 12/04/18 23:40 Temperature 97.8 F 97.9 F Pulse Rate 94 H 87 Respiratory Rate 16 Blood Pressure 100/55 L 92/60 L 12/05/18 00:14 12/05/18 00:30 12/05/18 01:00 Temperature Pulse Rate 98 H 85 Respiratory Rate 16 24 Blood Pressure 98/70 L 103/59 L 12/05/18 01:02 12/05/18 01:10 12/05/18 02:00 Temperature 97.8 F Pulse Rate 94 H 87 Respiratory Rate 18 Blood Pressure 99/60 L 12/05/18 02:50 12/05/18 02:55 12/05/18 03:00 Temperature Pulse Rate 88 85 107 H Respiratory Rate Blood Pressure 105/59 L 12/05/18 03:10 12/05/18 03:40 12/05/18 03:45 Temperature Pulse Rate 96 H 88 85 Respiratory Rate Blood Pressure 12/05/18 04:10 12/05/18 04:15 12/05/18 04:30 Temperature 97.8 F Pulse Rate 93 H 88 80 Respiratory Rate 18 Blood Pressure 110/63 12/05/18 05:05 12/05/18 05:40 12/05/18 06:10 Temperature Pulse Rate 84 98 H Respiratory Rate 18 Blood Pressure 111/57 L 12/05/18 06:15 12/05/18 06:30 12/05/18 06:45 Temperature Pulse Rate 72 86 81 Respiratory Rate Blood Pressure 97/58 L 12/05/18 06:50 12/05/18 07:20 12/05/18 07:35 Temperature Pulse Rate 89 81 82 Respiratory Rate Blood Pressure 100/55 L 12/05/18 07:43 12/05/18 07:50 12/05/18 08:05 Temperature Pulse Rate 84 83 Respiratory Rate 18 Blood Pressure 104/60 12/05/18 08:20 12/05/18 08:35 12/05/18 08:50 Temperature Pulse Rate 83 85 88 Respiratory Rate Blood Pressure 12/05/18 09:00 Temperature Pulse Rate Respiratory Rate 16 Blood Pressure Intake & Output 12/04/18 12/05/18 12/05/18 18:59 06:59 18:59 Intake Total 100 / 100 Balance 100 / 100 Weight 62.596 kg Intake: IV 100 / 100 Flagyl 500 MG Inj 100 ML @ 100 100 / 100 mls/hr IV.SIG Q8H [facility] Rx#: [id number] Result Diagrams: 12/05/18 08:10 Objective Remarks: GENERAL: Well-nourished, well-developed patient. CARDIOVASCULAR: Regular rate and rhythm without murmurs, gallops, or rubs. RESPIRATORY: Breath sounds equal bilaterally, wheeze to posterior lower lobes bilaterally, No accessory muscle use. ABDOMEN/GI: Abdomen soft, slight-tenderness, bowel sounds present. Hard mass to RUQ (approx 8cm x 6cm) non tender Incision: pressure dressing, Clean, dry and intact. Fundus: Firm, non-tender at umbilicus. GENITOURINARY: Light to moderate bleeding. Lazcano to BSD, clear yellow urine EXTREMITIES: No cyanosis or edema, non-tender, without signs of DVT. Wearing pneumatic device to lower extremities Medications and IVs: Active Medications Diphtheria/Pertussis/Tetanus Vacc (Boostrix Vaccine Inj) 0.5 ml IM .ONCE ONE Stop: 12/05/18 16:01 Lactated Ringer's (Lr 1000 Ml Inj) 1,000 mls @ 100 mls/hr IV.CONT .Q10H [facility] Stop: 12/05/18 23:33 Last Admin: 12/05/18 07:55 Dose: Not Given Oxytocin (Pitocin 30 Units/Ns 500 Ml Premix) 30 units in 500 mls @ 100 mls/hr IV.SIG UNSCH PRN PRN Reason: Heavy bleeding Cefazolin Sodium 1 gm/ Sodium (Chloride) 100 mls @ 100 mls/hr IV.SIG Q8H [facility] Stop: 12/05/18 12:59 Last Admin: 12/05/18 04:23 Dose: 100 mls/hr Metronidazole/Sodium Chloride (Flagyl 500 Mg Inj) 100 mls @ 100 mls/hr IV.SIG Q8H [facility] Last Admin: 12/05/18 07:53 Dose: 100 mls/hr Ibuprofen (Motrin) 800 mg PO Q8H PRN PRN Reason: cramping Last Admin: 12/05/18 07:53 Dose: 800 mg Measles/Mumps/Rubella Vaccine Live (M-M-R Ii Vaccine Inj) 0.5 ml SQ .ONCE ONE Stop: 12/05/18 16:01 Non-Formulary Medication (Pnv Cmb#95-Ferrous Fumarate-Fa []) [address] [facility] Last Admin: 12/05/18 09:01 Dose: Not Given Ondansetron HCl (Zofran Inj) 4 mg IV.PUSH Q6H PRN PRN Reason: NAUSEA OR VOMITING Last Admin: 12/04/18 21:30 Dose: 4 mg Oxycodone/Acetaminophen (Percocet 5/325 Mg) 1 tab PO Q4H PRN PRN Reason: PAIN SCALE 3 TO 5 Last Admin: 12/05/18 09:06 Dose: 1 tab Oxycodone/Acetaminophen (Percocet 5/325 Mg) 2 tab PO Q4H PRN PRN Reason: PAIN SCALE 6 TO 10 Senna/Docusate Sodium (Vanessa-Colace) 2 tab PO Q12H PRN PRN Reason: CONSTIPATION Simethicone (Mylicon Chew) 80 mg PO QID PRN PRN Reason: FLATULENCE Sodium Chloride (Ns Flush) [address] [facility] Last Admin: 12/05/18 09:06 Dose: Not Given Sodium Chloride (Ns Flush) 2 ml IV.FLUSH PRN PRN PRN Reason: FLUSH AFTER USING IV ACCESS Zolpidem Tartrate (Ambien) 5 mg PO HS PRN PRN Reason: INSOMNIA Assessment and Plan - Diagnosis (1) Status post repeat low transverse section Code(s): Z98.891 - History of uterine scar from previous surgery Status: Acute Plan: routine post op care (2) Hx of abdominal abscess Code(s): Z87.898 - Personal history of other specified conditions Status: Acute Plan: consult GI for evaluation (3) Anemia Code(s): D64.9 - Anemia, unspecified Status: Acute Plan: will monitor signs and symptoms monitor vs treat outpatient with oral iron supplement - Plan POD #1 repeat c section, removal of adhesions, left oophorectomy, bilateral tubal ligation pt doing well pain well managed with oral pain medication lazcano to be removed and encourage pt to shower and ambulate VSS, Hgb 7.7, will monitor signs and symptoms and vitals, repeat cbc tomorrow incentive spirometry ordered GI consult for HX abdominal abscess (firm mass to RUQ non tender) routine post op care Discharge Planning: consider dc in 2-3 days (3) Anemia Qualifiers: Other causes of anemia: acute posthemorrhagic
[2018-12-05] MEDS ORDERED: Diatrizoate Meglum/Diatrizoate Sod Liq 9 ML UDC PO ONE (12:12)
[2018-12-05 13:57] LABS: Anion Gap 7 meq/L (5-15); Blood Urea Nitrogen 3 mg/dL (7-18); Calcium 8.3 mg/dL (8.5-10.1); Carbon Dioxide 25.5 meq/L (21.0-32.0); Chloride 104 meq/L (98-107); Glomerular Filtration Rate Greater Than 89 mL/min (>89); Glucose,Random 67 mg/dL (74-106); Potassium 4.2 meq/L (3.5-5.1); Sodium 136 meq/L (136-145)
--- NOTE | 2018-12-05 14:53 | P.CONGI ---
History of Present Illness Consult date: 12/05/18 Requesting physician: Fawad Copeland Consult reason: History of crohn's and abscess during Chief complaint: SROM REPEAT C SECTION History of Present Illness: Patient is a 28 year old female with crohn's disease and history of abdominal abscess admitted for repeat section, consulted to our service due to concern for hardened mass on right upper quadrant. Per OB report, there was extensive adhesions to the uterus and adnexa, but no discrete mass examined intraoperatively. She was diagnosed with Crohn's disease Oct 2017 via colonoscopy, seen by Dr Clark in clinic. She began on mesalamine for several months with good results but subsequently became and stopped medication. August 2018 she was admitted to [place] for abdominal pain and was transferred to [place] due to early gestation. Per patient report, she had an abscess related to her crohn's and was given antibiotics and discharged. She denies nausea, vomiting, abdominal pain, constipation, diarrhea. She has a bowel movement daily. <Luisana Agustin - Last Filed: 12/05/18 14:40> Review of Systems All other systems reviewed negative except as stated in HPI <Luisana Agustin - Last Filed: 12/05/18 14:40> PMFSH - History History Provided By: Patient - Medical History Medical History: Medical History (Last Updated 09/10/18 @ 02:15 by Avery Main MD) History of Helicobacter pylori infection - Surgical History Surgical History: Surgical History (Last Updated 09/10/18 @ 02:15 by Avery Main MD) History of History of dilation and curettage - Tobacco History Second Hand Smoke Exposure: No Smoking Status: Former smoker Tobacco Type: Cigarettes - Alcohol History How Often Do You Have a Drink Containing Alcohol: Never - Substance Use History Substance History: No History of Abuse - Travel History Recent Travel in the [place] Within the Last 8 Weeks: No Recent Travel Out of the Country Within the Last 8 Weeks: No - Immunization History Hx Influenza Vaccine This Season: Yes <Luisana Agustin - Last Filed: 12/05/18 14:40> - Medical History Medical History: Medical History (Last Updated 09/10/18 @ 02:15 by Avery Main MD) History of Helicobacter pylori infection - Surgical History Surgical History: Surgical History (Last Updated 09/10/18 @ 02:15 by Avery Main MD) History of History of dilation and curettage <Gee Orozco - Last Filed: 12/05/18 14:54> Medications and Allergies Active Medications: Active Medications Diphtheria/Pertussis/Tetanus Vacc (Boostrix Vaccine Inj) 0.5 ml IM .ONCE ONE Stop: 12/05/18 16:01 Lactated Ringer's (Lr 1000 Ml Inj) 1,000 mls @ 100 mls/hr IV.CONT .Q10H [facility] Stop: 12/05/18 23:33 Last Admin: 12/05/18 07:55 Dose: Not Given Oxytocin (Pitocin 30 Units/Ns 500 Ml Premix) 30 units in 500 mls @ 100 mls/hr IV.SIG UNSCH PRN PRN Reason: Heavy bleeding Metronidazole/Sodium Chloride (Flagyl 500 Mg Inj) 100 mls @ 100 mls/hr IV.SIG Q8H [facility] Last Admin: 12/05/18 07:53 Dose: 100 mls/hr Ibuprofen (Motrin) 800 mg PO Q8H PRN PRN Reason: cramping Last Admin: 12/05/18 07:53 Dose: 800 mg Measles/Mumps/Rubella Vaccine Live (M-M-R Ii Vaccine Inj) 0.5 ml SQ .ONCE ONE Stop: 12/05/18 16:01 Non-Formulary Medication (Pnv Cmb#95-Ferrous Fumarate-Fa []) 1 tab PO DAILY [facility] Last Admin: 12/05/18 09:01 Dose: Not Given Ondansetron HCl (Zofran Inj) 4 mg IV.PUSH Q6H PRN PRN Reason: NAUSEA OR VOMITING Last Admin: 12/04/18 21:30 Dose: 4 mg Oxycodone/Acetaminophen (Percocet 5/325 Mg) 1 tab PO Q4H PRN PRN Reason: PAIN SCALE 3 TO 5 Last Admin: 12/05/18 09:06 Dose: 1 tab Oxycodone/Acetaminophen (Percocet 5/325 Mg) 2 tab PO Q4H PRN PRN Reason: PAIN SCALE 6 TO 10 Senna/Docusate Sodium (Vanessa-Colace) 2 tab PO Q12H PRN PRN Reason: CONSTIPATION Simethicone (Mylicon Chew) 80 mg PO QID PRN PRN Reason: FLATULENCE Sodium Chloride (Ns Flush) 2 ml IV.FLUSH BID [facility] Last Admin: 12/05/18 09:06 Dose: Not Given Sodium Chloride (Ns Flush) 2 ml IV.FLUSH PRN PRN PRN Reason: FLUSH AFTER USING IV ACCESS Zolpidem Tartrate (Ambien) 5 mg PO HS PRN PRN Reason: INSOMNIA <Luisana Agustin - Last Filed: 12/05/18 14:40> Active Medications: Active Medications Diphtheria/Pertussis/Tetanus Vacc (Boostrix Vaccine Inj) 0.5 ml IM .ONCE ONE Stop: 12/05/18 16:01 Lactated Ringer's (Lr 1000 Ml Inj) 1,000 mls @ 100 mls/hr IV.CONT .Q10H [facility] Stop: 12/05/18 23:33 Last Admin: 12/05/18 07:55 Dose: Not Given Oxytocin (Pitocin 30 Units/Ns 500 Ml Premix) 30 units in 500 mls @ 100 mls/hr IV.SIG UNSCH PRN PRN Reason: Heavy bleeding Metronidazole/Sodium Chloride (Flagyl 500 Mg Inj) 100 mls @ 100 mls/hr IV.SIG Q8H [facility] Last Admin: 12/05/18 07:53 Dose: 100 mls/hr Ibuprofen (Motrin) 800 mg PO Q8H PRN PRN Reason: cramping Last Admin: 12/05/18 07:53 Dose: 800 mg Measles/Mumps/Rubella Vaccine Live (M-M-R Ii Vaccine Inj) 0.5 ml SQ .ONCE ONE Stop: 12/05/18 16:01 Non-Formulary Medication (Pnv Cmb#95-Ferrous Fumarate-Fa []) 1 tab PO DAILY [facility] Last Admin: 12/05/18 09:01 Dose: Not Given Ondansetron HCl (Zofran Inj) 4 mg IV.PUSH Q6H PRN PRN Reason: NAUSEA OR VOMITING Last Admin: 12/04/18 21:30 Dose: 4 mg Oxycodone/Acetaminophen (Percocet 5/325 Mg) 1 tab PO Q4H PRN PRN Reason: PAIN SCALE 3 TO 5 Last Admin: 12/05/18 09:06 Dose: 1 tab Oxycodone/Acetaminophen (Percocet 5/325 Mg) 2 tab PO Q4H PRN PRN Reason: PAIN SCALE 6 TO 10 Senna/Docusate Sodium (Vanessa-Colace) 2 tab PO Q12H PRN PRN Reason: CONSTIPATION Simethicone (Mylicon Chew) 80 mg PO QID PRN PRN Reason: FLATULENCE Sodium Chloride (Ns Flush) 2 ml IV.FLUSH BID [facility] Last Admin: 12/05/18 09:06 Dose: Not Given Sodium Chloride (Ns Flush) 2 ml IV.FLUSH PRN PRN PRN Reason: FLUSH AFTER USING IV ACCESS Zolpidem Tartrate (Ambien) 5 mg PO HS PRN PRN Reason: INSOMNIA <Gee Orozco - Last Filed: 12/05/18 14:54> Allergies Allergy/AdvReac Type Severity Reaction Status Date / Time No Known Allergies Allergy Verified 11/29/18 16:43 Home Medications Medication Instructions Recorded Confirmed Type PNV cmb#95-ferrous fumarate-FA 1 tab PO DAILY 07/12/18 12/04/18 History [] acetaminophen [Tylenol Extra 1,000 mg PO Q6H PRN 09/10/18 12/04/18 History Strength] ferrous sulfate 1 tab PO DAILY 09/10/18 12/04/18 History Exam Vital signs: Vital Signs 12/04/18 18:47 12/04/18 22:20 12/04/18 22:30 Temperature 98.7 F 96.0 F L Pulse Rate 111 H 99 H 83 Respiratory Rate 20 16 Blood Pressure 100/70 101/55 L 103/63 12/04/18 22:55 12/04/18 23:10 12/04/18 23:22 Temperature 96.3 F L 97.0 F L Pulse Rate 94 H 112 H Respiratory Rate 16 16 16 Blood Pressure 128/58 L 108/56 L 12/04/18 23:25 12/04/18 23:38 12/04/18 23:40 Temperature 97.8 F 97.9 F Pulse Rate 94 H 87 Respiratory Rate 16 Blood Pressure 100/55 L 92/60 L 12/05/18 00:14 12/05/18 00:30 12/05/18 01:00 Temperature Pulse Rate 98 H 85 Respiratory Rate 16 24 Blood Pressure 98/70 L 103/59 L 12/05/18 01:02 12/05/18 01:10 12/05/18 02:00 Temperature 97.8 F Pulse Rate 94 H 87 Respiratory Rate 18 Blood Pressure 99/60 L 12/05/18 02:50 12/05/18 02:55 12/05/18 03:00 Temperature Pulse Rate 88 85 107 H Respiratory Rate Blood Pressure 105/59 L 12/05/18 03:10 12/05/18 03:40 12/05/18 03:45 Temperature Pulse Rate 96 H 88 85 Respiratory Rate Blood Pressure 12/05/18 04:10 12/05/18 04:15 12/05/18 04:30 Temperature 97.8 F Pulse Rate 93 H 88 80 Respiratory Rate 18 Blood Pressure 110/63 12/05/18 05:05 12/05/18 05:40 12/05/18 06:10 Temperature Pulse Rate 84 98 H Respiratory Rate 18 Blood Pressure 111/57 L 12/05/18 06:15 12/05/18 06:30 12/05/18 06:45 Temperature Pulse Rate 72 86 81 Respiratory Rate Blood Pressure 97/58 L 12/05/18 06:50 12/05/18 07:10 12/05/18 07:20 Temperature 98.5 F Pulse Rate 89 81 Respiratory Rate 16 Blood Pressure 100/55 L 12/05/18 07:35 12/05/18 07:43 12/05/18 07:50 Temperature Pulse Rate 82 84 Respiratory Rate 18 Blood Pressure 12/05/18 08:05 12/05/18 08:20 12/05/18 08:35 Temperature Pulse Rate 83 83 85 Respiratory Rate Blood Pressure 104/60 12/05/18 08:50 12/05/18 09:00 12/05/18 09:20 Temperature Pulse Rate 88 80 Respiratory Rate 16 Blood Pressure 98/56 L 12/05/18 10:25 Temperature 97.7 F Pulse Rate 76 Respiratory Rate 18 Blood Pressure 105/66 Intake & Output 12/04/18 12/05/18 12/05/18 18:59 06:59 18:59 Intake Total 200 / 200 Balance 200 / 200 Weight 62.596 kg Intake: IV 200 / 200 Ancef Inj 1 GM In NS Inj 100 ML 100 / 100 @ 100 mls/hr IV.SIG Q8H [facility] Rx #:[id number] Flagyl 500 MG Inj 100 ML @ 100 100 / 100 mls/hr IV.SIG Q8H [facility] Rx#: [id number] - Constitutional no acute distress - Routine HEENT Exam Head: Present: normocephalic, atraumatic ENT: Present: mucous membranes moist - Routine Cardiovascular Exam Present: RRR, S1, S2. Absent: murmur, gallop, rubs - Detailed Abdominal Exam Comments: Gravid uterus with approximate 3cm hardened mass right upper quadrant below the intercoastal margin. without erythema. non-tender to palpation <Luisana Agustin - Last Filed: 12/05/18 14:40> Vital signs: Vital Signs 12/04/18 18:47 12/04/18 22:20 12/04/18 22:30 Temperature 98.7 F 96.0 F L Pulse Rate 111 H 99 H 83 Respiratory Rate 20 16 Blood Pressure 100/70 101/55 L 103/63 12/04/18 22:55 12/04/18 23:10 12/04/18 23:22 Temperature 96.3 F L 97.0 F L Pulse Rate 94 H 112 H Respiratory Rate 16 16 16 Blood Pressure 128/58 L 108/56 L 12/04/18 23:25 12/04/18 23:38 12/04/18 23:40 Temperature 97.8 F 97.9 F Pulse Rate 94 H 87 Respiratory Rate 16 Blood Pressure 100/55 L 92/60 L 12/05/18 00:14 12/05/18 00:30 12/05/18 01:00 Temperature Pulse Rate 98 H 85 Respiratory Rate 16 24 Blood Pressure 98/70 L 103/59 L 12/05/18 01:02 12/05/18 01:10 12/05/18 02:00 Temperature 97.8 F Pulse Rate 94 H 87 Respiratory Rate 18 Blood Pressure 99/60 L 12/05/18 02:50 12/05/18 02:55 12/05/18 03:00 Temperature Pulse Rate 88 85 107 H Respiratory Rate Blood Pressure 105/59 L 12/05/18 03:10 12/05/18 03:40 12/05/18 03:45 Temperature Pulse Rate 96 H 88 85 Respiratory Rate Blood Pressure 12/05/18 04:10 12/05/18 04:15 12/05/18 04:30 Temperature 97.8 F Pulse Rate 93 H 88 80 Respiratory Rate 18 Blood Pressure 110/63 12/05/18 05:05 12/05/18 05:40 12/05/18 06:10 Temperature Pulse Rate 84 98 H Respiratory Rate 18 Blood Pressure 111/57 L 12/05/18 06:15 12/05/18 06:30 12/05/18 06:45 Temperature Pulse Rate 72 86 81 Respiratory Rate Blood Pressure 97/58 L 12/05/18 06:50 12/05/18 07:10 12/05/18 07:20 Temperature 98.5 F Pulse Rate 89 81 Respiratory Rate 16 Blood Pressure 100/55 L 12/05/18 07:35 12/05/18 07:43 12/05/18 07:50 Temperature Pulse Rate 82 84 Respiratory Rate 18 Blood Pressure 12/05/18 08:05 12/05/18 08:20 12/05/18 08:35 Temperature Pulse Rate 83 83 85 Respiratory Rate Blood Pressure 104/60 12/05/18 08:50 12/05/18 09:00 12/05/18 09:20 Temperature Pulse Rate 88 80 Respiratory Rate 16 Blood Pressure 98/56 L 12/05/18 10:25 12/05/18 13:55 Temperature 97.7 F 98.0 F Pulse Rate 76 81 Respiratory Rate 18 20 Blood Pressure 105/66 101/51 L Intake & Output 12/04/18 12/05/18 12/05/18 18:59 06:59 18:59 Intake Total 200 / 200 Balance 200 / 200 Weight 62.596 kg Intake: IV 200 / 200 Ancef Inj 1 GM In NS Inj 100 ML 100 / 100 @ 100 mls/hr IV.SIG Q8H [facility] Rx #:[id number] Flagyl 500 MG Inj 100 ML @ 100 100 / 100 mls/hr IV.SIG Q8H [facility] Rx#: [id number] <Gee Orozco - Last Filed: 12/05/18 14:54> Results - Labs CBC & Chem 7: 12/05/18 08:10 12/05/18 13:15 Labs: Laboratory Results - last 24 hr 12/04/18 12/04/18 12/04/18 19:20 19:20 19:35 WBC 11.4 H RBC 3.92 L Hgb 11.7 Hct 35.7 MCV 91.0 MCH 29.8 MCHC 32.7 RDW 14.9 Plt Count 476 H D MPV 8.1 Neut % (Auto) 73.1 H Lymph % (Auto) 17.1 [place] % (Auto) 9.0 H Eos % (Auto) 0.1 Baso % (Auto) 0.7 Neut # (Auto) 8.3 H Lymph # (Auto) 1.9 [place] # (Auto) 1.0 H Eos # (Auto) 0.0 Baso # (Auto) 0.1 WBC Differential . Differential Comment Auto diff final Fibrinogen D-Dimer Quant (PE/DVT) Sodium Potassium Chloride Carbon Dioxide Anion Gap BUN Creatinine Estimated GFR Random Glucose Calcium Urine Color Marcela Urine Clarity Turbid H Urine pH 6.0 Ur Specific [place] 1.012 Urine Protein 100 H Urine Glucose (UA) Negative Urine Ketones Trace H Urine Occult Blood Small H Urine Nitrate Negative Urine Bilirubin Negative Urine Urobilinogen Less than 2 Ur Leukocyte Esterase Moderate H Urine RBC 22 H Urine WBC 56 H Ur Squamous Epith Cells 56 Urine Bacteria Few H Urine Mucus Few H Micro UA Comment Culture indicated Ur Microscopic Review Not Reportable Urine Culture Comments Culture indicated Blood Type O Positive Antibody Screen Negative Bld Prod Order Comment 12/04/18 12/04/18 12/04/18 22:47 23:07 23:07 WBC 14.5 H RBC 2.87 L Hgb 9.2 L D Hct 25.8 L MCV 89.9 MCH 32.2 MCHC 35.8 RDW 14.9 Plt Count 441 MPV 8.1 Neut % (Auto) Lymph % (Auto) [place] % (Auto) Eos % (Auto) Baso % (Auto) Neut # (Auto) Lymph # (Auto) [place] # (Auto) Eos # (Auto) Baso # (Auto) WBC Differential Differential Comment Fibrinogen 559 H D-Dimer Quant (PE/DVT) 9.77 H Sodium Potassium Chloride Carbon Dioxide Anion Gap BUN Creatinine Estimated GFR Random Glucose Calcium Urine Color Urine Clarity Urine pH Ur Specific [place] Urine Protein Urine Glucose (UA) Urine Ketones Urine Occult Blood Urine Nitrate Urine Bilirubin Urine Urobilinogen Ur Leukocyte Esterase Urine RBC Urine WBC Ur Squamous Epith Cells Urine Bacteria Urine Mucus Micro UA Comment Ur Microscopic Review Urine Culture Comments Blood Type Antibody Screen Bld Prod Order Comment 12/05/18 12/05/18 12/05/18 00:00 08:10 13:15 WBC 11.5 H RBC 2.55 L Hgb 7.7 L Hct 23.2 L MCV 91.1 MCH 30.1 MCHC 33.0 RDW 14.7 Plt Count 390 MPV 7.4 Neut % (Auto) 79.1 H Lymph % (Auto) 11.0 [place] % (Auto) 9.8 H Eos % (Auto) 0.0 Baso % (Auto) 0.1 Neut # (Auto) 9.1 H Lymph # (Auto) 1.3 [place] # (Auto) 1.1 H Eos # (Auto) 0.0 Baso # (Auto) 0.0 WBC Differential . Differential Comment Auto diff final Fibrinogen 518 H D-Dimer Quant (PE/DVT) 8.90 H Sodium 136 Potassium 4.2 Chloride 104 Carbon Dioxide 25.5 Anion Gap 7 BUN 3 L Creatinine 0.59 Estimated GFR Greater than 89 Random Glucose 67 L Calcium 8.3 L Urine Color Urine Clarity Urine pH Ur Specific [place] Urine Protein Urine Glucose (UA) Urine Ketones Urine Occult Blood Urine Nitrate Urine Bilirubin Urine Urobilinogen Ur Leukocyte Esterase Urine RBC Urine WBC Ur Squamous Epith Cells Urine Bacteria Urine Mucus Micro UA Comment Ur Microscopic Review Urine Culture Comments Blood Type Antibody Screen Bld Prod Order Comment <Luisana Agustin - Last Filed: 12/05/18 14:40> - Labs CBC & Chem 7: 12/05/18 08:10 12/05/18 13:15 Labs: Laboratory Results - last 24 hr 12/04/18 12/04/18 12/04/18 19:20 19:20 19:35 WBC 11.4 H RBC 3.92 L Hgb 11.7 Hct 35.7 MCV 91.0 MCH 29.8 MCHC 32.7 RDW 14.9 Plt Count 476 H D MPV 8.1 Neut % (Auto) 73.1 H Lymph % (Auto) 17.1 [place] % (Auto) 9.0 H Eos % (Auto) 0.1 Baso % (Auto) 0.7 Neut # (Auto) 8.3 H Lymph # (Auto) 1.9 [place] # (Auto) 1.0 H Eos # (Auto) 0.0 Baso # (Auto) 0.1 WBC Differential . Differential Comment Auto diff final Fibrinogen D-Dimer Quant (PE/DVT) Sodium Potassium Chloride Carbon Dioxide Anion Gap BUN Creatinine Estimated GFR Random Glucose Calcium Urine Color Marcela Urine Clarity Turbid H Urine pH 6.0 Ur Specific [place] 1.012 Urine Protein 100 H Urine Glucose (UA) Negative Urine Ketones Trace H Urine Occult Blood Small H Urine Nitrate Negative Urine Bilirubin Negative Urine Urobilinogen Less than 2 Ur Leukocyte Esterase Moderate H Urine RBC 22 H Urine WBC 56 H Ur Squamous Epith Cells 56 Urine Bacteria Few H Urine Mucus Few H Micro UA Comment Culture indicated Ur Microscopic Review Not Reportable Urine Culture Comments Culture indicated Blood Type O Positive Antibody Screen Negative Bld Prod Order Comment 12/04/18 12/04/18 12/04/18 22:47 23:07 23:07 WBC 14.5 H RBC 2.87 L Hgb 9.2 L D Hct 25.8 L MCV 89.9 MCH 32.2 MCHC 35.8 RDW 14.9 Plt Count 441 MPV 8.1 Neut % (Auto) Lymph % (Auto) [place] % (Auto) Eos % (Auto) Baso % (Auto) Neut # (Auto) Lymph # (Auto) [place] # (Auto) Eos # (Auto) Baso # (Auto) WBC Differential Differential Comment Fibrinogen 559 H D-Dimer Quant (PE/DVT) 9.77 H Sodium Potassium Chloride Carbon Dioxide Anion Gap BUN Creatinine Estimated GFR Random Glucose Calcium Urine Color Urine Clarity Urine pH Ur Specific [place] Urine Protein Urine Glucose (UA) Urine Ketones Urine Occult Blood Urine Nitrate Urine Bilirubin Urine Urobilinogen Ur Leukocyte Esterase Urine RBC Urine WBC Ur Squamous Epith Cells Urine Bacteria Urine Mucus Micro UA Comment Ur Microscopic Review Urine Culture Comments Blood Type Antibody Screen Bld Prod Order Comment 12/05/18 12/05/18 12/05/18 00:00 08:10 13:15 WBC 11.5 H RBC 2.55 L Hgb 7.7 L Hct 23.2 L MCV 91.1 MCH 30.1 MCHC 33.0 RDW 14.7 Plt Count 390 MPV 7.4 Neut % (Auto) 79.1 H Lymph % (Auto) 11.0 [place] % (Auto) 9.8 H Eos % (Auto) 0.0 Baso % (Auto) 0.1 Neut # (Auto) 9.1 H Lymph # (Auto) 1.3 [place] # (Auto) 1.1 H Eos # (Auto) 0.0 Baso # (Auto) 0.0 WBC Differential . Differential Comment Auto diff final Fibrinogen 518 H D-Dimer Quant (PE/DVT) 8.90 H Sodium 136 Potassium 4.2 Chloride 104 Carbon Dioxide 25.5 Anion Gap 7 BUN 3 L Creatinine 0.59 Estimated GFR Greater than 89 Random Glucose 67 L Calcium 8.3 L Urine Color Urine Clarity Urine pH Ur Specific [place] Urine Protein Urine Glucose (UA) Urine Ketones Urine Occult Blood Urine Nitrate Urine Bilirubin Urine Urobilinogen Ur Leukocyte Esterase Urine RBC Urine WBC Ur Squamous Epith Cells Urine Bacteria Urine Mucus Micro UA Comment Ur Microscopic Review Urine Culture Comments Blood Type Antibody Screen Bld Prod Order Comment <Gee Orozco - Last Filed: 12/05/18 14:54> Assessment and Plan - Plan 28 yo Female with known history of Crohn's disease and previous abdominal abscess with history of antibiotic treatment during with concern for persistence of abscess. - CT scan to evaluate origin of mass - consider Surgical consult vs antibiotic therapy vs fine needle aspiration/ biopsy <Luisana Agustin - Last Filed: 12/05/18 14:40> - Attending Attestation I have seen and examined the patient and reviewed the patients care with the [employer] ENGINE[employer] HELPER and medical student. I agree with the above assessment and recommendations as documented above. <Gee Orozco - Last Filed: 12/05/18 14:54>
[2018-12-05] MEDS ORDERED: Measles/Mumps/Rubella Vaccine Inj 0.5 ML Vial SQ ONE (16:00)
[2018-12-05] MEDS ORDERED: Diphtheria/Tetanus/Pertussis Vaccine Inj 0.5 ML Syringe IM ONE (16:00)
--- NOTE | 2018-12-05 17:12 | CT ---
EXAM DATE: 12/05/2018 4:56 PM EST AGE/SEX: 28 years / Female INDICATIONS: Post . Pain and swelling. Evaluate for abscess. CLINICAL DATA: This is the patient's initial encounter. Patient reports that signs and symptoms have been present for 1 day and indicates a pain score of 2/10. MEDICAL/SURGICAL HISTORY: None. section. ORAL CONTRAST: Prescribed oral contrast ingested. RADIATION DOSE: 8.02 CTDI (mGy) COMPARISON: [facility], CT ABDOMEN AND PELVIS W AND W/O CONTRAST, 08/16/2017. . TECHNIQUE: Multiple contiguous axial images were obtained through the abdomen and pelvis following b olus infusion of 76 ml Omnipaque 350 (iohexol) nonionic water-soluble contrast as a single exam dos e. Prescribed oral contrast ingested. Using automated exposure control and adjustment of the mA and/ or kV according to patient size, radiation dose was kept as low as reasonably achievable to obtain op timal diagnostic quality images. DICOM format image data is available electronically for review and comparison. FINDINGS: Lower Lungs: There is small bilateral pleural effusions. Liver: The liver has a homogeneous density without space-occupying lesion. There is no dilation of th e biliary tree. Free air is noted under the diaphragm. Air appears unremarkable. Spleen: Homogeneous density without enlargement. Pancreas: Unremarkable without mass or calcification. Kidneys: Normal in size and shape. No evidence of mass or hydronephrosis. Adrenal Glands: Unremarkable. Aorta: The aorta and proximal iliac vessels are grossly unremarkable without aneurysmal dilation. Bowel/Mesentery: Oral contrast is noted in the proximal and mid small bowel. The distal small bowel and colon are unopacified. There is a nonspecific bowel gas pattern with mild gaseous dilatation of p ortions of the colon. The small bowel is nondilated. Abdominal Wall: Postsurgical changes are noted with skin thickening and multiple clips and david o patti the central pelvis. Above this level is a band of low density fluid along the anterior abdominal wall musculature with multiple small gas bubbles noted in multiple areas. This could represent postsu rgical change with hematoma and/or seroma. Infection is not excluded. This is seen best on images num bers 53 through 61. There is abnormal enhancement and fluid noted along the right lateral abdominal w all musculature this is seen on images numbers 29 through 41 with ill-defined low density fluid colle ctions and enhancement. The largest collection measures up to 5.2 x 1.2 cm. Retroperitoneum: No evidence of adenopathy in the retrocrural, para-aortic, or deep pelvic regions. Bladder: The bladder appears at the upper limits of normal in size with multiple air-fluid levels wh ich may be due to recent instrumentation. Reproductive Organs: The uterus is markedly enlarged and diffusely heterogeneous. Uterus measures up to 13 x 11.5 cm and demonstrates heterogeneous enhancement. There are several gas bubbles present wi thin the uterus. Inguinal: The inguinal region is unremarkable without evidence of adenopathy. Bony Structures: Unremarkable. CONCLUSION: 1. Abnormal thickening of the right lateral abdominal wall musculature multiple with multiple small fluid collections and patchy areas of enhancement. There are no gas bubbles identified. The findings are concerning for infection and abscess. The largest collection measures up to 5.2 x 1.2 cm. 2. Postsurgical changes over the lower central pelvis with additional areas of fluid density and mul tiple gas bubbles along the anterior abdominal wall musculature which are nonspecific and could repre sent seroma and/or hematoma or infection. 3. Uterus is diffusely enlarged and inhomogeneous with heterogeneous enhancement. There are several gas bubbles centrally. The findings are nonspecific and could be due to the recent gravid state and s urgery. 4. Urinary bladder is at the upper limits of normal in size with multiple gas bubbles which could be secondary to recent instrumentation. 5. Nonspecific bowel gas pattern which may represent an ileus. 6. New small pleural effusions. Electronically signed by: Moises Cifuentes MD Board Certified Radiologist 12/05/2018 5:10 PM EST
[2018-12-06 05:10] LABS: Baso % (Auto) 0.2 % (0.0-2.0); Eos % (Auto) 0.4 % (0.0-4.0); Lymph # (Auto) 1.5 th/mm3 (1.0-4.8); Lymph % (Auto) 14.3 % (9.0-44.0); Mean Corpuscular HGB Conc 34.1 % (32.0-36.0); Mean Corpuscular Hemoglobin 30.6 pg (27.0-34.0); Mean Corpuscular Volume 89.8 fL (80.0-100.0); Mean Platelet Volume 7.3 fL (7.0-11.0); Mono # (Auto) 1.1 th/mm3 (0.0-0.9); Mono % (Auto) 10.6 % (0.0-8.0); Neut % (Auto) 74.5 % (16.0-70.0); Platelet Count 387 th/mm3 (150-450); Red Blood Count 2.19 mil/mm3 (4.00-5.30); Red Cell Distribution Width 14.8 % (11.6-17.2); White Blood Count 10.7 th/mm3 (4.0-11.0)
[2018-12-06 05:23] LABS: Hematocrit 19.6 % (35.0-46.0); Hemoglobin 6.7 gm/dL (11.6-15.3)
[2018-12-06] MEDS ORDERED: Acetaminophen 325 MG Tablet PO ONE (09:00)
--- NOTE | 2018-12-06 09:41 | P.PNOB ---
Subjective Post op day: 2 Objective Vital Signs/I&O: Vital Signs 12/05/18 09:20 12/05/18 10:25 12/05/18 13:55 Temperature 97.7 F 98.0 F Pulse Rate 80 76 81 Respiratory Rate 18 20 Blood Pressure 98/56 L 105/66 101/51 L 12/05/18 18:12 12/05/18 18:13 12/05/18 20:00 Temperature 97.4 F L 98.0 F Pulse Rate 93 H 112 H Respiratory Rate 12 20 Blood Pressure 86/53 L 93/66 L Intake & Output 12/05/18 12/06/18 12/06/18 18:59 06:59 18:59 Intake Total 200 / 200 100 / 100 Balance 200 / 200 100 / 100 Intake: IV 200 / 200 100 / 100 Flagyl 500 MG Inj 100 ML @ 100 200 / 200 100 / 100 mls/hr IV.SIG Q8H [facility] Rx#: [id number] Result Diagrams: 12/06/18 08:51 12/05/18 13:15 Objective Remarks: GENERAL: Well-nourished, well-developed patient. CARDIOVASCULAR: Regular rate and rhythm without murmurs, gallops, or rubs. RESPIRATORY: Breath sounds equal bilaterally. No accessory muscle use. ABDOMEN/GI: Abdomen soft, non-tender, bowel sounds present. RUQ mass present, nontender Incision: pressure dressing, Clean, dry and intact. Fundus: Firm, non-tender at umbilicus. GENITOURINARY: Light to moderate bleeding. EXTREMITIES: No cyanosis or edema, non-tender, without signs of DVT. Medications and IVs: Active Medications Oxytocin (Pitocin 30 Units/Ns 500 Ml Premix) 30 units in 500 mls @ 100 mls/hr IV.SIG UNSCH PRN PRN Reason: Heavy bleeding Metronidazole/Sodium Chloride (Flagyl 500 Mg Inj) 100 mls @ 100 mls/hr IV.SIG Q8H [facility] Last Admin: 12/06/18 08:39 Dose: 100 mls/hr Ibuprofen (Motrin) 800 mg PO Q8H PRN PRN Reason: cramping Last Admin: 12/05/18 20:38 Dose: 800 mg Non-Formulary Medication (Pnv Cmb#95-Ferrous Fumarate-Fa []) 1 tab PO DAILY [facility] Last Admin: 12/05/18 09:01 Dose: Not Given Ondansetron HCl (Zofran Inj) 4 mg IV.PUSH Q6H PRN PRN Reason: NAUSEA OR VOMITING Last Admin: 12/04/18 21:30 Dose: 4 mg Oxycodone/Acetaminophen (Percocet 5/325 Mg) 1 tab PO Q4H PRN PRN Reason: PAIN SCALE 3 TO 5 Last Admin: 12/06/18 00:06 Dose: 1 tab Oxycodone/Acetaminophen (Percocet 5/325 Mg) 2 tab PO Q4H PRN PRN Reason: PAIN SCALE 6 TO 10 Senna/Docusate Sodium (Vanessa-Colace) 2 tab PO Q12H PRN PRN Reason: CONSTIPATION Simethicone (Mylicon Chew) 80 mg PO QID PRN PRN Reason: FLATULENCE Sodium Chloride (Ns Flush) 2 ml IV.FLUSH BID [facility] Last Admin: 12/06/18 02:15 Dose: Not Given Sodium Chloride (Ns Flush) 2 ml IV.FLUSH PRN PRN PRN Reason: FLUSH AFTER USING IV ACCESS Zolpidem Tartrate (Ambien) 5 mg PO HS PRN PRN Reason: INSOMNIA Assessment and Plan - Diagnosis (1) Status post repeat low transverse section Code(s): Z98.891 - History of uterine scar from previous surgery Status: Acute Plan: routine post op care (2) Hx of abdominal abscess Code(s): Z87.898 - Personal history of other specified conditions Status: Acute Plan: CT confirms abscess will be referred to radiologist interventionalist to consider draining (3) Anemia Code(s): D64.9 - Anemia, unspecified Status: Acute Plan: HGB 6.7, discussed blood transfusion will repeat H/H prior to transfusion repeat 7.5/22.9 VSS will follow and treat outpatient with oral iron supplement - Plan POD #2 repeat c section, removal of adhesions, left oophorectomy, bilateral tubal ligation pt doing well pain well managed with oral pain medication VVS Hgb 6.7 discussed transfusion with pt (repeat H/H 7.5/22.9),will proceed with transfusion ambulating without difficult routine post op care 2 abdominal abscess RUQ non tender consult radiology interventionalist for aspiration of abscess Discharge Planning: consider dc in 2-3 days (3) Anemia Qualifiers: Other causes of anemia: acute posthemorrhagic
[2018-12-06 11:21] VITALS: O2SAT 100
[2018-12-06] MEDS: Non-Formulary Drug (Pnv Cmb#95-Ferrous Fumarate-Fa [Prenatal] 1 TAB) PO SCH (12:24)
--- NOTE | 2018-12-06 13:54 | US ---
EXAM DATE: 12/06/2018 12:30 PM EST AGE/SEX: 28 years / Female INDICATIONS: Right lateral abdominal wall mass. CLINICAL DATA: This is the patient's initial encounter. Patient reports that signs and symptoms have been present for 4 - 6 months and indicates a pain score of 0/10. MEDICAL/SURGICAL HISTORY: Crohn's disease. History of Helicobacter pylori infection. section. Dilation and curettage. COMPARISON: [facility] – [place], [place] ABDOMEN & PELVIS W CONTRAST, 12/05/2018. . FINDINGS: Within the lateral abdominal wall there is a very complex fluid collection that measures 3.2 x 2.7 x 1.2 cm. There is some posterior acoustical enhancement. Some peripheral hyperemia surrounding the flu id collection. There is a hypoechoic tract leading to the adjacent ascending colon within the periton eal cavity likely relating to a fistulous tract. No other fluid collection is visible. CONCLUSION: 1. 3.2 x 2.7 x 1.2 cm abdominal wall abscess with concern for fistulous tract to the adjacent ascend ing colon. Electronically signed by: Miguel Doss MD Board Certified Radiologist 12/06/2018 1:53 PM EST
[2018-12-06] MEDS ORDERED: fentaNYL Citrate Inj 250 MCG/5 ML Ampul ONE (15:49)
--- NOTE | 2018-12-06 16:25 | P.RAD ---
Post Procedure Progress Note - Procedure Information Procedure Date: 12/06/18 Supervising Radiologist: Miguel Doss Jr, MD Proceduralist/Assist: Alfonso Moore Anesthesia: Other - Plan of Activity Patient to Unit: Nursing Unit Patient Condition: Good See PACS Report for procedural detail/treatment. Drainage Procedure Ultrasound right Abscess Drainage Placement Fluid Description: Purulent Findings: US guided drainage of a lateral right abdominal wall collection was performed. Drain placed. 0.1mL of thick purulent material obtained. Sent for cx. Collection has yet to liquify. Will leave drain in place for now. Will monitor output. Plan: Monitor output.
--- NOTE | 2018-12-06 16:30 | P.PNGI ---
Subjective Interval history: Patient awake and alert Sitting up in bed breast-feeding Family present Denies abdominal pain Receiving blood transfusion <GigiLeslie - Last Filed: 12/06/18 16:12> Physical Exam Vital signs: Vital Signs 12/05/18 18:12 12/05/18 18:13 12/05/18 20:00 Temperature 97.4 F L 98.0 F Pulse Rate 93 H 112 H Respiratory Rate 12 20 Blood Pressure 86/53 L 93/66 L Pulse Oximetry 12/06/18 08:00 12/06/18 11:19 12/06/18 11:47 Temperature 98.0 F 97.7 F 98 F Pulse Rate 98 H 94 H 101 H Respiratory Rate 18 16 18 Blood Pressure 90/60 L 82/59 L 87/68 L Pulse Oximetry 100 100 12/06/18 12:00 12/06/18 14:45 12/06/18 15:04 Temperature 98.0 F 98.9 F 98.3 F Pulse Rate 101 H 99 H 97 H Respiratory Rate 18 18 16 Blood Pressure 87/68 L 86/59 L 88/69 L Pulse Oximetry 100 100 Intake & Output 12/05/18 12/06/18 12/06/18 18:59 06:59 18:59 Intake Total 200 / 200 100 / 100 400 / 400 Balance 200 / 200 100 / 100 400 / 400 Intake: IV 200 / 200 100 / 100 Flagyl 500 MG Inj 100 ML @ 100 200 / 200 100 / 100 mls/hr IV.SIG Q8H [facility] Rx#: [id number] Intake (Blood Product) Amt 400 / 400 Rbc As-3 Leukoreduced Unit 400 / 400 [id number] Rbc As-3 Leukoreduced Unit 0 / 0 [id number] - Constitutional no acute distress, average body habitus, cooperative - Routine HEENT Exam Head: Present: normocephalic - Routine Respiratory Exam Present: CTA bilaterally. Absent: accessory muscle use - Routine Cardiovascular Exam Present: RRR - Routine Abdominal Exam Present: soft, normoactive bowel sounds, mass. Absent: tenderness, firm Comments: Right upper quadrant mass - Routine Extremities Exam Absent: edema - Routine Skin Exam Present: dry, warm - Detailed Neurological Exam: Coma Scale Eye Opening: Spontaneous Verbal Response: Oriented Motor Response: Obey commands Ashley Coma Scale Total: 15 - Routine Psychiatric Exam Present: normal affect, cooperative <Leslie Yu - Last Filed: 12/06/18 16:12> Vital signs: Vital Signs 12/06/18 11:19 12/06/18 11:47 12/06/18 12:00 Temperature 97.7 F 98 F 98.0 F Pulse Rate 94 H 101 H 101 H Respiratory Rate 16 18 18 Blood Pressure 82/59 L 87/68 L 87/68 L Pulse Oximetry 100 100 12/06/18 14:45 12/06/18 15:04 12/06/18 17:00 Temperature 98.9 F 98.3 F 98.1 F Pulse Rate 99 H 97 H 86 Respiratory Rate 18 16 16 Blood Pressure 86/59 L 88/69 L 82/59 L Pulse Oximetry 100 100 12/06/18 19:00 12/07/18 08:00 Temperature 98.4 F 97.9 F Pulse Rate 103 H 65 Respiratory Rate 18 18 Blood Pressure 98/63 L 102/60 Pulse Oximetry Intake & Output 12/06/18 12/07/18 12/07/18 18:59 06:59 18:59 Intake Total 500 / 500 100 / 100 Balance 500 / 500 100 / 100 Intake: IV 100 / 100 100 / 100 Flagyl 500 MG Inj 100 ML @ 100 100 / 100 100 / 100 mls/hr IV.SIG Q8H [facility] Rx#: [id number] Intake (Blood Product) Amt 400 / 400 Rbc As-3 Leukoreduced Unit 400 / 400 [id number] Rbc As-3 Leukoreduced Unit 0 / 0 [id number] <Gee Orozco - Last Filed: 12/07/18 10:09> Results - Labs CBC & Chem 7: 12/06/18 08:51 12/05/18 13:15 Laboratory Results - last 24 hr 12/06/18 12/06/18 12/06/18 04:31 05:44 08:51 WBC 10.7 RBC 2.19 L Hgb 6.7 L* 7.5 L Hct 19.6 L* MCV 89.8 MCH 30.6 MCHC 34.1 RDW 14.8 Plt Count 387 MPV 7.3 Neut % (Auto) 74.5 H Lymph % (Auto) 14.3 Ballard % (Auto) 10.6 H Eos % (Auto) 0.4 Baso % (Auto) 0.2 Neut # (Auto) 8.0 H Lymph # (Auto) 1.5 Ballard # (Auto) 1.1 H Eos # (Auto) 0.0 Baso # (Auto) 0.0 WBC Differential . Differential Comment Auto diff final MTS Gel Crossmatch See Detail 12/06/18 08:51 WBC RBC Hgb Hct 22.9 L MCV MCH MCHC RDW Plt Count MPV Neut % (Auto) Lymph % (Auto) Ballard % (Auto) Eos % (Auto) Baso % (Auto) Neut # (Auto) Lymph # (Auto) Ballard # (Auto) Eos # (Auto) Baso # (Auto) WBC Differential Differential Comment MTS Gel Crossmatch Microbiology 12/04/18 19:20 Clean Catch Urine Urine Culture - Final 10-50,000 cfu/mL mixed gram positive cierra (probable contaminants) - Imaging Impressions Abdomen/Pelvis CT 12/05/18 12:12 CONCLUSION: 1. Abnormal thickening of the right lateral abdominal wall musculature multiple with multiple small fluid collections and patchy areas of enhancement. There are no gas bubbles identified. The findings are concerning for infection and abscess. The largest collection measures up to 5.2 x 1.2 cm. 2. Postsurgical changes over the lower central pelvis with additional areas of fluid density and multiple gas bubbles along the anterior abdominal wall musculature which are nonspecific and could represent seroma and/or hematoma or infection. 3. Uterus is diffusely enlarged and inhomogeneous with heterogeneous enhancement. There are several gas bubbles centrally. The findings are nonspecific and could be due to the recent gravid state and surgery. 4. Urinary bladder is at the upper limits of normal in size with multiple gas bubbles which could be secondary to recent instrumentation. 5. Nonspecific bowel gas pattern which may represent an ileus. 6. New small pleural effusions. Soft Tissue Ultrasound 12/06/18 11:51 CONCLUSION: 1. 3.2 x 2.7 x 1.2 cm abdominal wall abscess with concern for fistulous tract to the adjacent ascending colon. <Leslie Yu - Last Filed: 12/06/18 16:12> - Labs CBC & Chem 7: 12/07/18 06:07 12/05/18 13:15 Laboratory Results - last 24 hr 12/06/18 12/07/18 05:44 06:07 WBC 10.3 RBC 3.01 L Hgb 9.3 L Hct 27.0 L MCV 89.8 MCH 30.8 MCHC 34.3 RDW 18.0 H D Plt Count 428 MPV 7.5 Neut % (Auto) 65.8 Lymph % (Auto) 23.3 Ballard % (Auto) 9.1 H Eos % (Auto) 1.1 Baso % (Auto) 0.7 Neut # (Auto) 6.8 Lymph # (Auto) 2.4 Ballard # (Auto) 0.9 Eos # (Auto) 0.1 Baso # (Auto) 0.1 WBC Differential . Differential Comment Auto diff final MTS Gel Crossmatch See Detail - Imaging Impressions Abscess Drainage 12/06/18 00:00 CONCLUSION: 1. Uncomplicated abscess drainage. Only 0.1 mL of purulent material was able to be aspirated. This collection has yet to fully liquefied. We will leave the catheter in place for a few days to evaluate for any output. If the output remains low the catheter will be removed. The sample was sent for microbiological evaluation. Soft Tissue Ultrasound 12/06/18 11:51 CONCLUSION: 1. 3.2 x 2.7 x 1.2 cm abdominal wall abscess with concern for fistulous tract to the adjacent ascending colon. <Gee Orozco - Last Filed: 12/07/18 10:09> Assessment and Plan - Plan 28 yo Female with known history of Crohn's disease and previous abdominal abscess with history of antibiotic treatment during with concern for persistence of abscess. - CT scan to evaluate origin of mass - consider Surgical consult vs antibiotic therapy vs fine needle aspiration/ biopsy 12/06/2018 Crohn's disease Abscess abdominal wall 12/05/2018 CT abdomen and pelvis reveal the following: Abnormal thickening of the right lateral abdominal wall musculature multiple with multiple small fluid collections and patchy areas of enhancement. There are no gas bubbles identified. The findings are concerning for infection and abscess. The largest collection measures up to 5.2 x 1.2 cm. Postsurgical changes over the lower central pelvis with additional areas of fluid density and multiple gas bubbles along the anterior abdominal wall musculature which are nonspecific and could represent seroma and/or hematoma or infection. Uterus is diffusely enlarged and inhomogeneous with heterogeneous enhancement. There are several gas bubbles centrally. The findings are nonspecific and could be due to the recent gravid state and surgery. 12/06/2018 soft tissue ultrasound : 3.2 x 2.7 x 1.2 cm abdominal wall abscess with concern for fistulous tract to the adjacent ascending colon. -WBC 10.7 hemoglobin 7.5 hematocrit 22.9 Plan -Regular diet -General surgery following -Agree with interventional radiology plan for drainage of abdominal wall abscess -Patient to follow-up with GI as outpatient for further evaluation-patient to be seen within 1 week of discharge -Monitor labs -Gram-negative antibiotic coverage -Supportive care -GI will sign off at this time, please notify if further assistance needed This patient has been seen by myself and Dr. Orozco and this note is written on his behalf - Attending Attestation Dr. Orozco <Leslie Yu - Last Filed: 12/06/18 16:12> - Attending Attestation I have seen and examined the patient and reviewed the relevant portions of the chart and discussed the patient's current complaints, results and findings with the CATERING DIRECTOR. We have reviewed the therapeutic plan for the patient. I agree with the above assessment and recommendations as documented above. <Gee Orozco - Last Filed: 12/07/18 10:09>
[2018-12-06 23:12] VITALS: RESP 18
[2018-12-07 06:57] LABS: Baso # (Auto) 0.1 th/mm3 (0.0-0.2); Baso % (Auto) 0.7 % (0.0-2.0); Eos # (Auto) 0.1 th/mm3 (0.0-0.4); Eos % (Auto) 1.1 % (0.0-4.0); Hemoglobin 9.3 gm/dL (11.6-15.3); Lymph # (Auto) 2.4 th/mm3 (1.0-4.8); Lymph % (Auto) 23.3 % (9.0-44.0); Mean Corpuscular HGB Conc 34.3 % (32.0-36.0); Mean Corpuscular Hemoglobin 30.8 pg (27.0-34.0); Mean Corpuscular Volume 89.8 fL (80.0-100.0); Mean Platelet Volume 7.5 fL (7.0-11.0); Mono # (Auto) 0.9 th/mm3 (0.0-0.9); Mono % (Auto) 9.1 % (0.0-8.0); Neut # (Auto) 6.8 th/mm3 (1.8-7.7); Neut % (Auto) 65.8 % (16.0-70.0); Platelet Count 428 th/mm3 (150-450); Red Blood Count 3.01 mil/mm3 (4.00-5.30); White Blood Count 10.3 th/mm3 (4.0-11.0)
--- NOTE | 2018-12-07 09:06 | IR ---
EXAM DATE: 12/06/2018 5:55 PM EST AGE/SEX: 28 years / Female INDICATIONS: Patient presents with abdominal abscess in need of drain. CLINICAL DATA: This is the patient's initial encounter. Patient reports that signs and symptoms have been present for 4 - 6 months and indicates a pain score of 0/10. MEDICAL/SURGICAL HISTORY: Crohn's disease. History of Helicobacter pylori infection s ection. COMPARISON: No prior exams available for comparison. IMAGE SERIES: 3 RADIATION DOSE: SITE: right abdomen FLUID: Total volume of 1 cc of cloudy, red fluid was removed. Fluid was sent to lab for ordered studi es. DEVICE(S): 8 [place] locking catheter . . PROCEDURE : 1. Ultrasound guidance for abscess drainage. 2. Abscess drainage. Fentanyl was utilized for pain control. The risks, benefits and alternatives to the procedure were ex plained and verbal and written consent was obtained. The site was prepped in sterile fashion. Full sterile technique was used, including cap, mask, sterile gloves and gown and a large sterile sheet. Hand hygiene and 2% chlorhexidine and/or betadine/alcohol prep was utilized per protocol for cutaneou s antisepsis. The skin and subcutaneous tissues were infiltrated with local anesthetic solution. St erile gel and sterile probe cover were utilized for ultrasound guidance. Ultrasound imaging was used to select the most appropriate approach for drainage. Under direct sonographic guidance an 18-gauge needle was passed via a right lateral approach into the right lateral abdominal wall complex fluid collection. A 0.035 wire was coiled in the collection and an 8 [place] drainage catheter placed. Aspiration yielded 0.1 mL of purulent material. Further aspira tion did not yield further fluid. The catheter is confidently within the collection as shown on the u ltrasound images. The catheter was sutured in place. CONCLUSION: 1. Uncomplicated abscess drainage. Only 0.1 mL of purulent material was able to be aspirated. This c ollection has yet to fully liquefied. We will leave the catheter in place for a few days to evaluate for any output. If the output remains low the catheter will be removed. The sample was sent for micro biological evaluation. Electronically signed by: Miguel Doss MD Board Certified Radiologist 12/07/2018 9:04 AM EST
--- NOTE | 2018-12-07 10:41 | CT ---
EXAM DATE: 12/07/2018 10:29 AM EST AGE/SEX: 28 years / Female INDICATIONS: Evaluate for abscess status post section three days ago. CLINICAL DATA: This is the patient's initial encounter. Patient reports that signs and symptoms have been present for 3 days and indicates a pain score of 7/10. MEDICAL/SURGICAL HISTORY: . Helico bacter pylori infection. section. RADIATION DOSE: 6.32 CTDI (mGy) COMPARISON: [facility] – [place], [place] ABDOMEN & PELVIS W CONTRAST, 12/05/2018. . TECHNIQUE: Multiple contiguous axial images were obtained through the abdomen. Images were obtained using multiple row detector helical technique. Using automated exposure control and adjustment of the mA and/or kV according to patient size, radiation dose was kept as low as reasonably achievable to o btain optimal diagnostic quality images. DICOM format image data is available electronically for rev iew and comparison. FINDINGS: Lower Lungs: Small bilateral pleural effusions and minimal adjacent atelectasis in the posterior lung bases. Liver: The liver has a homogeneous density without space-occupying lesion. There is no dilation of th e biliary tree. Spleen: Homogeneous density without enlargement. Pancreas: Unremarkable without mass or calcification. Kidneys: Normal in size and shape. No evidence of mass or hydronephrosis. Adrenal Glands: Unremarkable. Aorta: The aorta and proximal iliac vessels are grossly unremarkable without aneurysmal dilation. Bowel/Mesentery: The bowel loops are grossly unremarkable. The cecum and sigmoid colon have a normal configuration. Abdominal Wall: Postoperative changes in the low anterior pelvic wall with skin david remaining in place. Minimal induration and air. No evidence of abscess. Retroperitoneum: No evidence of adenopathy in the retrocrural, para-aortic, or deep pelvic regions. Bladder: Persistent air in the nondependent urinary bladder. Reproductive Organs: Enlarged uterus containing minimal air. Inguinal: The inguinal region is unremarkable without evidence of adenopathy. Bony Structures: Unremarkable. CONCLUSION: Little change from previous scan Electronically signed by: Abdiaziz Proctor MD Board Certified Radiologist 12/07/2018 10:39 AM EST
--- NOTE | 2018-12-07 10:50 | P.PNOB ---
Subjective Post op day: 3 Objective Vital Signs/I&O: Vital Signs 12/06/18 11:19 12/06/18 11:47 12/06/18 12:00 Temperature 97.7 F 98 F 98.0 F Pulse Rate 94 H 101 H 101 H Respiratory Rate 16 18 18 Blood Pressure 82/59 L 87/68 L 87/68 L Pulse Oximetry 100 100 12/06/18 14:45 12/06/18 15:04 12/06/18 17:00 Temperature 98.9 F 98.3 F 98.1 F Pulse Rate 99 H 97 H 86 Respiratory Rate 18 16 16 Blood Pressure 86/59 L 88/69 L 82/59 L Pulse Oximetry 100 100 12/06/18 19:00 12/07/18 08:00 Temperature 98.4 F 97.9 F Pulse Rate 103 H 65 Respiratory Rate 18 18 Blood Pressure 98/63 L 102/60 Pulse Oximetry Intake & Output 12/06/18 12/07/18 12/07/18 18:59 06:59 18:59 Intake Total 500 / 500 100 / 100 Balance 500 / 500 100 / 100 Intake: IV 100 / 100 100 / 100 Flagyl 500 MG Inj 100 ML @ 100 100 / 100 100 / 100 mls/hr IV.SIG Q8H [facility] Rx#: [id number] Intake (Blood Product) Amt 400 / 400 Rbc As-3 Leukoreduced Unit 400 / 400 [id number] Rbc As-3 Leukoreduced Unit 0 / 0 [id number] Result Diagrams: 12/07/18 06:07 12/05/18 13:15 Objective Remarks: GENERAL: Well-nourished, well-developed patient. CARDIOVASCULAR: Regular rate and rhythm without murmurs, gallops, or rubs. RESPIRATORY: Breath sounds equal bilaterally. No accessory muscle use. ABDOMEN/GI: Abdomen soft, non-tender, bowel sounds present, drain to RUQ Incision: david, Clean, dry and intact. Fundus: Firm, non-tender at umbilicus. GENITOURINARY: Light to moderate bleeding. EXTREMITIES: No cyanosis or edema, non-tender, without signs of DVT. Medications and IVs: Active Medications Oxytocin (Pitocin 30 Units/Ns 500 Ml Premix) 30 units in 500 mls @ 100 mls/hr IV.SIG UNSCH PRN PRN Reason: Heavy bleeding Metronidazole/Sodium Chloride (Flagyl 500 Mg Inj) 100 mls @ 100 mls/hr IV.SIG Q8H [facility] Last Admin: 12/07/18 02:53 Dose: 100 mls/hr Ibuprofen (Motrin) 800 mg PO Q8H PRN PRN Reason: cramping Last Admin: 12/07/18 05:45 Dose: 800 mg Non-Formulary Medication (Pnv Cmb#95-Ferrous Fumarate-Fa []) 1 tab PO DAILY [facility] Last Admin: 12/06/18 12:24 Dose: Not Given Ondansetron HCl (Zofran Inj) 4 mg IV.PUSH Q6H PRN PRN Reason: NAUSEA OR VOMITING Last Admin: 12/04/18 21:30 Dose: 4 mg Oxycodone/Acetaminophen (Percocet 5/325 Mg) 1 tab PO Q4H PRN PRN Reason: PAIN SCALE 3 TO 5 Last Admin: 12/07/18 05:45 Dose: 1 tab Oxycodone/Acetaminophen (Percocet 5/325 Mg) 2 tab PO Q4H PRN PRN Reason: PAIN SCALE 6 TO 10 Last Admin: 12/06/18 09:29 Dose: 2 tab Senna/Docusate Sodium (Vanessa-Colace) 2 tab PO Q12H PRN PRN Reason: CONSTIPATION Simethicone (Mylicon Chew) 80 mg PO QID PRN PRN Reason: FLATULENCE Sodium Chloride (Ns Flush) 2 ml IV.FLUSH BID [facility] Last Admin: 12/06/18 23:08 Dose: Not Given Sodium Chloride (Ns Flush) 2 ml IV.FLUSH PRN PRN PRN Reason: FLUSH AFTER USING IV ACCESS Sodium Chloride (Ns Inj) 5 ml IRRIGATION BID [facility] Last Admin: 12/07/18 02:56 Dose: Not Given Zolpidem Tartrate (Ambien) 5 mg PO HS PRN PRN Reason: INSOMNIA Assessment and Plan - Diagnosis (1) Status post repeat low transverse section Code(s): Z98.891 - History of uterine scar from previous surgery Status: Acute Plan: routine post op care passing flatus david to be removed tomorrow (2) Hx of abdominal abscess Code(s): Z87.898 - Personal history of other specified conditions Status: Acute Plan: radiologist interventionalist needle aspiration yesterday 2/7 of purulent drainage culture pending drain RUQ with small amount of serosanguineous drainage (3) Anemia Code(s): D64.9 - Anemia, unspecified Status: Acute Plan: HGB 9.3 post 2 units of blood - Plan POD #3 repeat c section, removal of adhesions, left oophorectomy, bilateral tubal ligation pt doing well pain well managed with oral pain medication VSS, febrile Hgb 9.3 post transfusion of 2 units 2/7 david to be removed tomorrow routine post op care 2. abdominal abscess WBC WNL needle aspiration done 2/7 culture pending drain to RUQ small amount of serosanguineous fluid continue Flagyl Discharge Planning: consider dc tomorrow (3) Anemia Qualifiers: Other causes of anemia: acute posthemorrhagic
[2018-12-07] MEDS: Non-Formulary Drug (Pnv Cmb#95-Ferrous Fumarate-Fa [Prenatal] 1 TAB) PO SCH (11:31)
--- NOTE | 2018-12-07 16:56 | P.CONID ---
History of Present Illness Primary Care Provider: No Primary Care Physician Chief Complaint: I broke my water PMFSH - History History Provided By: Patient - Medical History Medical History: Medical History (Last Updated 12/07/18 @ 16:55 by Shari Cleveland MD) Crohn disease Intra-abdominal abscess History of Helicobacter pylori infection - Surgical History Surgical History: Surgical History (Last Reviewed 12/07/18 @ 16:55 by Shari Cleveland MD) History of History of dilation and curettage - Family History Family History: Family History (Last Updated 12/07/18 @ 17:49 by Janel Wood MD) Other No pertinent family history - Tobacco History Second Hand Smoke Exposure: No Smoking Status: Former smoker Tobacco Type: Cigarettes - Alcohol History How Often Do You Have a Drink Containing Alcohol: Never - Substance Use History Substance History: No History of Abuse - Travel History Recent Travel in the [place] Within the Last 8 Weeks: No Recent Travel Out of the Country Within the Last 8 Weeks: No - Immunization History Hx Influenza Vaccine This Season: Yes Medications and Allergies Active Medications: Active Medications Oxytocin (Pitocin 30 Units/Ns 500 Ml Premix) 30 units in 500 mls @ 100 mls/hr IV.SIG UNSCH PRN PRN Reason: Heavy bleeding Metronidazole/Sodium Chloride (Flagyl 500 Mg Inj) 100 mls @ 100 mls/hr IV.SIG Q8H [facility] Last Admin: 12/07/18 11:52 Dose: 100 mls/hr Ibuprofen (Motrin) 800 mg PO Q8H PRN PRN Reason: cramping Last Admin: 12/07/18 05:45 Dose: 800 mg Non-Formulary Medication (Pnv Cmb#95-Ferrous Fumarate-Fa []) 1 tab PO DAILY [facility] Last Admin: 12/07/18 11:31 Dose: Not Given Ondansetron HCl (Zofran Inj) 4 mg IV.PUSH Q6H PRN PRN Reason: NAUSEA OR VOMITING Last Admin: 12/04/18 21:30 Dose: 4 mg Oxycodone/Acetaminophen (Percocet 5/325 Mg) 1 tab PO Q4H PRN PRN Reason: PAIN SCALE 3 TO 5 Last Admin: 12/07/18 11:52 Dose: 1 tab Oxycodone/Acetaminophen (Percocet 5/325 Mg) 2 tab PO Q4H PRN PRN Reason: PAIN SCALE 6 TO 10 Last Admin: 12/06/18 09:29 Dose: 2 tab Senna/Docusate Sodium (Vanessa-Colace) 2 tab PO Q12H PRN PRN Reason: CONSTIPATION Simethicone (Mylicon Chew) 80 mg PO QID PRN PRN Reason: FLATULENCE Sodium Chloride (Ns Flush) 2 ml IV.FLUSH BID [facility] Last Admin: 12/07/18 11:30 Dose: 2 ml Sodium Chloride (Ns Flush) 2 ml IV.FLUSH PRN PRN PRN Reason: FLUSH AFTER USING IV ACCESS Sodium Chloride (Ns Inj) 5 ml IRRIGATION BID [facility] Last Admin: 12/07/18 09:15 Dose: 5 ml Zolpidem Tartrate (Ambien) 5 mg PO HS PRN PRN Reason: INSOMNIA Allergies Allergy/AdvReac Type Severity Reaction Status Date / Time No Known Allergies Allergy Verified 11/29/18 16:43 Home Medications Medication Instructions Recorded Confirmed Type PNV cmb#95-ferrous fumarate-FA 1 tab PO DAILY 07/12/18 12/04/18 History [] acetaminophen [Tylenol Extra 1,000 mg PO Q6H PRN 09/10/18 12/04/18 History Strength] ferrous sulfate 1 tab PO DAILY 09/10/18 12/04/18 History Exam Vital signs: Vital Signs 12/06/18 17:00 12/06/18 19:00 12/07/18 08:00 Temperature 98.1 F 98.4 F 97.9 F Pulse Rate 86 103 H 65 Respiratory Rate 16 18 18 Blood Pressure 82/59 L 98/63 L 102/60 Intake & Output 12/06/18 12/07/18 12/07/18 18:59 06:59 18:59 Intake Total 500 / 500 100 / 100 Balance 500 / 500 100 / 100 Intake: IV 100 / 100 100 / 100 Flagyl 500 MG Inj 100 ML @ 100 100 / 100 100 / 100 mls/hr IV.SIG Q8H [facility] Rx#: [id number] Intake (Blood Product) Amt 400 / 400 Rbc As-3 Leukoreduced Unit 400 / 400 [id number] Rbc As-3 Leukoreduced Unit 0 / 0 [id number] Results - Labs CBC & Chem 7: 12/07/18 06:07 12/05/18 13:15
--- NOTE | 2018-12-07 18:20 | P.CONID ---
History of Present Illness Service: ID Consult date: 12/07/18 Requesting Physician: Fawad Copeland Reason for Consult: abdominal wall abscess Primary Care Provider: No Primary Care Physician Chief Complaint: I broke my water History of Present Illness: chart reviewed Dw Dr Copeland pt was interviewed 28 yo via C section sp Repeat low transverse section, Bilateral tubal ligation,Extensive lysis of adhesions and Left salpingo-oophorectomy secondary to bleeding on 12/04/18 Pt was diagnosed with Chrohn's disease based in 2016 and was on treatmtnt untill her last She stopped her Chrohn's disease medx when she found out that she is and in July she noticed some pain in RLQ She was apparently treateed with multiple abx which she cant remember except for flaguyl and con to have pain After delivery she had CT that showed abscess Pt remains afebrile and with normal WBC for her stauts , resolved p delivery Review of Systems All other systems reviewed negative except as stated in HPI PMFSH - History History Provided By: Patient - Medical History Medical History: Medical History (Last Reviewed 12/07/18 @ 17:49 by Janel Wood MD) Crohn disease Intra-abdominal abscess History of Helicobacter pylori infection - Surgical History Surgical History: Surgical History (Last Reviewed 12/07/18 @ 17:49 by Janel Wood MD) History of History of dilation and curettage - Family History Family History: Family History (Last Updated 12/07/18 @ 17:49 by Janel Wood MD) Other No pertinent family history - Social History I have reviewed the patient's Social History: Yes - Tobacco History Second Hand Smoke Exposure: No Smoking Status: Former smoker Tobacco Type: Cigarettes - Alcohol History How Often Do You Have a Drink Containing Alcohol: Never - Substance Use History Substance History: No History of Abuse - Travel History Recent Travel in the [place] Within the Last 8 Weeks: No Recent Travel Out of the Country Within the Last 8 Weeks: No - Immunization History Hx Influenza Vaccine This Season: Yes Medications and Allergies Active Medications: Active Medications Oxytocin (Pitocin 30 Units/Ns 500 Ml Premix) 30 units in 500 mls @ 100 mls/hr IV.SIG UNSCH PRN PRN Reason: Heavy bleeding Metronidazole/Sodium Chloride (Flagyl 500 Mg Inj) 100 mls @ 100 mls/hr IV.SIG Q8H [facility] Last Admin: 12/07/18 11:52 Dose: 100 mls/hr Ibuprofen (Motrin) 800 mg PO Q8H PRN PRN Reason: cramping Last Admin: 12/07/18 16:55 Dose: 800 mg Non-Formulary Medication (Pnv Cmb#95-Ferrous Fumarate-Fa []) 1 tab PO DAILY [facility] Last Admin: 12/07/18 11:31 Dose: Not Given Ondansetron HCl (Zofran Inj) 4 mg IV.PUSH Q6H PRN PRN Reason: NAUSEA OR VOMITING Last Admin: 12/04/18 21:30 Dose: 4 mg Oxycodone/Acetaminophen (Percocet 5/325 Mg) 1 tab PO Q4H PRN PRN Reason: PAIN SCALE 3 TO 5 Last Admin: 12/07/18 16:55 Dose: 1 tab Oxycodone/Acetaminophen (Percocet 5/325 Mg) 2 tab PO Q4H PRN PRN Reason: PAIN SCALE 6 TO 10 Last Admin: 12/06/18 09:29 Dose: 2 tab Senna/Docusate Sodium (Vanessa-Colace) 2 tab PO Q12H PRN PRN Reason: CONSTIPATION Simethicone (Mylicon Chew) 80 mg PO QID PRN PRN Reason: FLATULENCE Sodium Chloride (Ns Flush) 2 ml IV.FLUSH BID [facility] Last Admin: 12/07/18 11:30 Dose: 2 ml Sodium Chloride (Ns Flush) 2 ml IV.FLUSH PRN PRN PRN Reason: FLUSH AFTER USING IV ACCESS Sodium Chloride (Ns Inj) 5 ml IRRIGATION BID [facility] Last Admin: 12/07/18 09:15 Dose: 5 ml Zolpidem Tartrate (Ambien) 5 mg PO HS PRN PRN Reason: INSOMNIA Allergies Allergy/AdvReac Type Severity Reaction Status Date / Time No Known Allergies Allergy Verified 11/29/18 16:43 Home Medications Medication Instructions Recorded Confirmed Type PNV cmb#95-ferrous fumarate-FA 1 tab PO DAILY 07/12/18 12/04/18 History [] acetaminophen [Tylenol Extra 1,000 mg PO Q6H PRN 09/10/18 12/04/18 History Strength] ferrous sulfate 1 tab PO DAILY 09/10/18 12/04/18 History Exam Vital signs: Vital Signs 12/06/18 19:00 12/07/18 08:00 Temperature 98.4 F 97.9 F Pulse Rate 103 H 65 Respiratory Rate 18 18 Blood Pressure 98/63 L 102/60 Intake & Output 12/06/18 12/07/18 12/07/18 18:59 06:59 18:59 Intake Total 500 / 500 100 / 100 Balance 500 / 500 100 / 100 Intake: IV 100 / 100 100 / 100 Flagyl 500 MG Inj 100 ML @ 100 100 / 100 100 / 100 mls/hr IV.SIG Q8H [facility] Rx#: [id number] Intake (Blood Product) Amt 400 / 400 Rbc As-3 Leukoreduced Unit 400 / 400 [id number] Rbc As-3 Leukoreduced Unit 0 / 0 [id number] - Constitutional no acute distress, average body habitus - Routine HEENT Exam Head: Present: normocephalic, atraumatic Eye: Present: EOMI, PERRL ENT: Present: mucous membranes moist, oropharynx clear - Routine Neck Exam Present: supple, JVD. Absent: lymphadenopathy - Routine Respiratory Exam Present: CTA bilaterally. Absent: respiratory distress - Routine Cardiovascular Exam Present: RRR, S1, S2. Absent: murmur, gallop, rubs - Routine Abdominal Exam Present: soft, normoactive bowel sounds, tenderness (RLQ), drain (in RLQ w/o any drainage) - Routine Extremities Exam Absent: cyanosis, clubbing, edema - Routine Skin Exam Present: intact, dry, warm. Absent: jaundice, rash - Routine Neurological Exam Present: alert, oriented X3, CN II-XII intact. Absent: sensory deficit, motor deficit - Routine Psychiatric Exam Present: normal affect, cooperative Results - Labs CBC & Chem 7: 12/07/18 06:07 12/05/18 13:15 Labs: Laboratory Results - last 24 hr 12/07/18 06:07 WBC 10.3 RBC 3.01 L Hgb 9.3 L Hct 27.0 L MCV 89.8 MCH 30.8 MCHC 34.3 RDW 18.0 H D Plt Count 428 MPV 7.5 Neut % (Auto) 65.8 Lymph % (Auto) 23.3 Miner % (Auto) 9.1 H Eos % (Auto) 1.1 Baso % (Auto) 0.7 Neut # (Auto) 6.8 Lymph # (Auto) 2.4 Miner # (Auto) 0.9 Eos # (Auto) 0.1 Baso # (Auto) 0.1 WBC Differential . Differential Comment Auto diff final - Imaging Impressions Abscess Drainage 12/06/18 00:00 CONCLUSION: 1. Uncomplicated abscess drainage. Only 0.1 mL of purulent material was able to be aspirated. This collection has yet to fully liquefied. We will leave the catheter in place for a few days to evaluate for any output. If the output remains low the catheter will be removed. The sample was sent for microbiological evaluation. Abdomen/Pelvis CT 12/07/18 00:00 CONCLUSION: Little change from previous scan Abdomen/Pelvis CT 12/05/18 12:12 CONCLUSION: 1. Abnormal thickening of the right lateral abdominal wall musculature multiple with multiple small fluid collections and patchy areas of enhancement. There are no gas bubbles identified. The findings are concerning for infection and abscess. The largest collection measures up to 5.2 x 1.2 cm. 2. Postsurgical changes over the lower central pelvis with additional areas of fluid density and multiple gas bubbles along the anterior abdominal wall musculature which are nonspecific and could represent seroma and/or hematoma or infection. 3. Uterus is diffusely enlarged and inhomogeneous with heterogeneous enhancement. There are several gas bubbles centrally. The findings are nonspecific and could be due to the recent gravid state and surgery. 4. Urinary bladder is at the upper limits of normal in size with multiple gas bubbles which could be secondary to recent instrumentation. 5. Nonspecific bowel gas pattern which may represent an ileus. 6. New small pleural effusions. Abscess Drainage 12/06/18 00:00 CONCLUSION: 1. Uncomplicated abscess drainage. Only 0.1 mL of purulent material was able to be aspirated. This collection has yet to fully liquefied. We will leave the catheter in place for a few days to evaluate for any output. If the output remains low the catheter will be removed. The sample was sent for microbiological evaluation. Soft Tissue Ultrasound 12/06/18 11:51 CONCLUSION: 1. 3.2 x 2.7 x 1.2 cm abdominal wall abscess with concern for fistulous tract to the adjacent ascending colon. Abdomen/Pelvis CT 12/07/18 00:00 CONCLUSION: Little change from previous scan Assessment and Plan - Plan abdominal wall musculature infection and abscess. The largest collection measures up to 5.2 x 1.2 cm. 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
[2018-12-07 21:08] VITALS: PULSE 67
[2018-12-07] MEDS: Amoxicillin/Clavulanate 500/125 MG Tablet PO SCH (21:55)
[2018-12-08] MEDS: Amoxicillin/Clavulanate 500/125 MG Tablet PO SCH (06:00)
[2018-12-08 09:58] VITALS: BP 108/70
[2018-12-08 09:59] VITALS: TEMP 97.9
== END 2018-12-08 11:01 | disposition home or self-care (01) | DRG 784 ==
LOC: HOBED 18:29 → H2E 18:53 → H1EA 12-05 10:29
PROVIDERS: ADMIT Obstetrics & Gynecology; ATTEND Obstetrics & Gynecology
CPT/HCPCS: 10160; 36430; 59025; 74176; 74177; 75989; 76999; 80048; 81001; 83518; 84112; 85014; 85018; 85025; 85027; 85379; 85384; 86850; 86900; 86901; 86923; 87070; 87077; 87086; 87186; 87205; 88302; 94150; 99285; C1729; C1765; C1769; J0131; J0690; J1100; J1200; J2274; J2370; J2405; J2590; J3010; J7120; P9016; Q9963; Q9967